=== PATIENT | male | born 1990 | race Caucasian/White ===

== ENCOUNTER 2022-05-03 19:21 | Inpatient (IN) | payer OTHER, SELFPAY ==
--- NOTE | ~2022-05-03 | XR_ITS ---
EXAMINATION: XR CHEST CLINICAL INFORMATION: Shortness of breath COMPARISON: None TECHNIQUE: The heart and pulmonary vessels appear normal. view of the chest was obtained. FINDINGS: Scattered areas of infiltrate are present, predominantly groundglass in appearance in the right perihilar region, right lower lobe medially and in the left lower lobe. A small left pleural effusion is present. No right pleural effusion. XR/XR chest 1V IMPRESSION: Multifocal areas of groundglass infiltrate. Small left pleural effusion. Findings suggestive of viral pneumonia.
[2022-05-03 19:25] VITALS: BP 136/66; PULSE 88; RESP 18; TEMP 36.6; O2SAT 90; BMI 30.9
[2022-05-03 20:10] LABS: MANUAL DIFF FLAG NO
--- OUTSIDE RECORDS SUMMARY | 2022-05-03 20:11 | XMS_ITS | Continuity of Care Document ---
:1990 Author Organization [facility] Adult Address [address] [place] [address]- Care Team Providers Name Role Phone Not on Staff, PCP Primary Care Physician Unavailable Encounter [facility] Date(s): 02/05/22 - 03/11/22 [facility] Adult [address] [place] [id number]- Attending Physician: Not on Staff, Attending MD Immunizations Given and Recorded Vaccine Date Status Refusal Reason SARS-CoV-2 (COVID-19) mRNA-1273 vaccine 01/09/21 Recorded SARS-CoV-2 (COVID-19) mRNA-1273 vaccine 11/20/20 Recorded tetanus/diphtheria/pertussis, acel(Tdap) 06/22/11 Recorde d Meningococcal Conjugate Vaccine 08/06/08 Recorded tetanus-diphtheria toxoids (Td) 06/14/01 Recorded Measles/Mumps/Rubella Virus Vaccine 11/15/95 Recorded Measles/Mumps/Rubella Virus Vaccine 07/24/91 Recorded Poliovirus Vaccine, Inactivated 06/22/94 Recorded Poliovirus Vaccine, Inactivated 03/19/92 Recorded Poliovirus Vaccine, Inactivated 90 Recorded Poliovirus Vaccine, Inactivated 90 Recorded Patient Care team information Care Team PersonnelName: Not on Staff, PCP Position: S Physician (General Medicine) Member Role: PCP
--- OUTSIDE RECORDS SUMMARY | 2022-05-03 20:11 | XMS_ITS | Continuity of Care Document ---
:1990 Author Organization [facility] Adult Address [address] [place] [address]- Care Team Providers Name Role Phone Not on Staff, PCP Primary Care Physician Unavailable Encounter [facility] Date(s): 02/09/22 - 03/11/22 [facility] Adult [address] [place] [id number]- Attending Physician: Krzysztof Do Admitting Physician: Krzysztof Do Referring Physician: AdmtrKrzysztof Immunizations Given and Recorded Vaccine Date Status [...]
[2022-05-03 20:12] LABS: Basophils Percent Auto 0.4 % (0-2); Eosinophils Absolute Auto 0.2 X10*3/uL (0.0-0.4); Eosinophils Percent Auto 2.8 % (0-4); Hematocrit 37.2 % (42.0-52.0); Imm Gran Abs Auto 0.03 X10*3/uL (0.00-0.03); Imm Gran Pct Auto 0.4 % (0.0-0.4); Lymphocytes Absolute Auto 1.5 X10*3/uL (1.2-4.9); Lymphocytes Percent Auto 21.4 % (20-40); Mean Corpuscular HGB Conc 34.9 g/dl (31.0-36.0); Mean Corpuscular Hemoglobin 30.7 pg (27.0-33.0); Mean Corpuscular Volume 87.9 fL (80.0-98.0); Mean Platelet Volume 9.3 fL (9.4-12.4); Monocytes Absolute Auto 0.5 X10*3/uL (0.1-1.2); Monocytes Percent Auto 7.1 % (2-11); Neutrophils Absolute Auto 4.8 x10*3/uL (2.0-8.3); Neutrophils Percent Auto 67.9 % (45-73); Platelet Count 258 X10*3/uL (160-400); Red Blood Count 4.23 X10*6/uL (4.60-5.80); Red Cell Distribution Width 11.6 % (11.0-16.0); White Blood Count 7.1 X10*3/uL (4.8-10.8)
[2022-05-03 20:12] LABS: Amphetamine Screen Urine Not Detected (Not Detect); Barbiturates, Urine Not Detected (Not Detect); Benzodiazepines Screen Urine Not Detected (Not Detect); Cannabinoid Screen Urine Not Detected (Not Detect); Cocaine Screen Urine Not Detected (Not Detect); Fentanyl, urine Not Detected (Not Detect); Opiate Screen Urine Not Detected (Not Detect); Phencyclidine Screen Urine Not Detected (Not Detect)
[2022-05-03 20:14] LABS: COVID-19 Test Negative (Negative); IDNOW Serial# 16C4AD1C
[2022-05-03 20:25] VITALS: O2SAT 98
--- NOTE | 2022-05-03 20:36 | ED.GENADULT ---
HPI - General Adult General Chief complaint: Psychiatric Symptoms Stated complaint: section 12 si Time Seen by Provider: 05/03/22 19:27 Source: patient and EMS Mode of arrival: EMS Limitations: no limitations History of Present Illness HPI narrative: 32-year-old male presenting via EMS for suicidal ideation w/ plan to OD on fentanyl or run infront of a car. Patient denies thoughts of harming others. Patient is a reliable historian states that his anxiety and depression has been increasing over the past year and he has recently started Lexapro. Patient is also taking methadone and has a history of opiate abuse last used 4 days ago. patient denies alcohol use but uses tobacco products in vapes daily. Patient has had 3 recent suicidal attempts. Patient denies auditory and visual hallucination. Patient was also diagnosed with pneumonia 3 days ago and was sent home with an antibiotic. Patient states he has had slight improvement in smptoms and is on oral antibiotics. Patient denies recent trauma, headache, fever, chills, chest pain, memory loss, hemoptysis, nausea, vomiting, diarrhea, chest pain, abd pain. Related Data Home Medications Medication Instructions Recorded Confirmed amoxicillin 875 mg-potassium 1 tab PO BID 05/03/22 05/03/22 clavulanate 125 mg tablet escitalopram oxalate 10 mg tablet 1 tab PO DAILY 05/03/22 05/03/22 methadone 10 mg tablet 30 mg PO DAILY 05/03/22 05/03/22 nicotine 21 mg/24 hr daily 1 patch topical DAILY 05/03/22 05/03/22 transdermal patch Allergies Allergy/AdvReac Type Severity Reaction Status Date / Time Seasonal Allergies Allergy Mild Runny Nose Verified 05/03/22 19:35 Review of Systems Review of Systems: Constitutional : No Weight loss, No Fever, No Chills, No Fatigue, No Malaise ENT/Mouth : No sore throat, No Rhinorrhea Eyes: No Eye Pain, No Swelling, No Redness Cardiovascular : No Chest Pain, + SOB, No Dyspnea on Exertion, No Orthopnea, No Edema, No Palpitations Respiratory : No Cough, No Sputum, No Wheezing Gastrointestinal : No Nausea, No Vomiting, No Diarrhea, No Constipation, No abdominal Pain, No Hematochezia, No Melena Genitourinary : No Dysuria, No Urinary Frequency, No Hematuria, Musculoskeletal : No joint pain, No Myalgias, No Joint Swelling Skin : No Skin Lesions, No rash Neuro : No Weakness, No Numbness, No Dizziness, No Headache Psych : + Anxiet, + Depression, NO HOMICIDAL IDEATION All other systems reviewed and are negative [facility] Social History Social History Advance Directives: No Advance Directives Information Provided: Yes Physical Exam ED Vital Signs: Vital Signs - 24 hr 05/03/22 19:25 05/03/22 20:25 05/03/22 20:57 Temperature 97.9 F Pulse Rate 88 Respiratory Rate 18 Blood Pressure 136/66 Pulse Oximetry 90 L 98 93 Oxygen Delivery Method Room Air Room Air Room Air BMI result Body Mass Index 30.9 Const Other: Appearance: Alert.? Oriented X3.? Moderate distress.? Head: Normocephalic, atraumatic, no step-offs or deformities Eyes: Pupils equal, round and reactive to light.? ENT: Pharynx normal.? Neck: Normal inspection.? Neck supple.? CVS: Normal heart rate and rhythm.? Pulses normal.? Respiratory: No respiratory distress.? Breath sounds normal.? Abdomen: Soft and nontender.? Skin: Skin warm and dry.? Normal skin color.? Normal skin turgor.? Extremities: No lower extremity edema.? No calf ttp. 5/5 strength to bilateral upper and lower extremities Back: No midline tenderness, no C-spine tenderness, full range of motion, no CVA tenderness bilaterally Neuro: Oriented X 3.? No motor deficit.? No sensory deficit. CN 2-12 intact Course Reevaluation(s) Reevaluation #1: CBC appears to be within normal limits. Chemistry with no acute findings requiring intervention. Urine toxicology negative. Salicylates, acetaminophen and ethanol negative. Patient COVID negative. Chest x-ray with multifocal areas of ground-glass infiltrate, small left pleural effusion. Concerning for possible viral pneumonia. Patient is currently on antibiotics for this will continue him on his antibiotic course. Will give 1 time dose of Decadron and albuterol inhaler for viral pneumonia. Patient appears comfortable no acute distress no further intervention needed for pneumonia. I do not suspect patient needs medical admit. I do not suspect PE on this patient he is PERC negative Time: 22:37 Reevaluation #2: At this time patient will be placed into observation to allow more time to be evaluated by the care team. At time observation was started patient common cooperative no acute distress will continue to monitor. Time: 22:39 Medications Administered Generic Name Dose Route Start Last Admin Trade Name Edinson PRN Reason Stop Dose Admin Amoxicillin/Clavulanate Potassium 875 mg 05/03/22 21:45 05/03/22 21:44 Amoxicillin/Potassium Clav 875 Mg Tablet PO 875 mg BID [place] Administration Nicotine 21 mg 05/04/22 09:00 05/03/22 21:45 Nicotine 21 Mg Patch.Td24 TRANSDERMA 21 mg DAILY [place] Administration Medical Decision Making Medical Decision Making [facility] Narrative: 32-year-old male presenting for suicidal ideations and plan. Patient also has pneumonia is currently being treated with antibiotics. No respiratory complaints. Respiratory exam benign. Initially patient vital signs revealed an O2 saturation of 90% on room air however when repeated patient's 98%, no respiratory complaints, appears comfortable no increased work of breathing, no signs of acute respiratory distress. Most likely anxiety/depression versus polysubstance abuse. Less likely electrolyte abnormalities or metabolic disturbances Plan medical clearance evaluation by care team Differential Diagnosis Differential Diagnoses: The differential diagnosis associated with the presentation includes Most likely anxiety/depression versus polysubstance abuse. Less likely electrolyte abnormalities or metabolic disturbances Admission/Observation Consideration of admission/observation: Escalation of care including admission/observation considered Likely psychiatric admission Lab Data [facility] Lab Attestation statement: I reviewed the patient's lab results. 05/03/22 20:00 05/03/22 20:00 Labs: Lab Results 05/03/22 05/03/22 05/03/22 Range/Units 19:44 19:44 20:00 WBC (4.8-10.8) X10*3/uL RBC (4.60-5.80) X10*6/uL Hgb (14.0-18.0) g/dl Hct (42.0-52.0) % MCV (80.0-98.0) fL MCH (27.0-33.0) pg MCHC (31.0-36.0) g/dl RDW (11.0-16.0) % Plt Count (160-400) X10*3/uL MPV (9.4-12.4) fL Immature Gran % (Auto) (0.0-0.4) % Neut % (Auto) (45-73) % Lymph % (Auto) (20-40) % [place] % (Auto) (2-11) % Eos % (Auto) (0-4) % Baso % (Auto) (0-2) % Lymph # (Auto) (1.2-4.9) X10*3/uL [place] # (Auto) (0.1-1.2) X10*3/uL Eos # (Auto) (0.0-0.4) X10*3/uL Baso # (Auto) (0.0-0.2) X10*3/uL Abs Immat Gran (auto) (0.00-0.03) X10*3/uL Absolute Neuts (auto) (2.0-8.3) x10*3/uL Absolute Nucleated RBC (0.0-0.012) X10*3/uL Nucleated RBC % (auto) (0.0-0.2) /100WBC Sodium (135-145) mmol/L Potassium (3.3-5.1) mmol/L Chloride (96-108) mmol/L Carbon Dioxide (22-29) mmol/L Anion Gap (12-20) BUN (9-16) mg/dL Creatinine (0.5-1.4) mg/dL Estim Creat Clear Calc Estimated GFR Random Glucose (60-115) mg/dL Calcium (8.4-10.2) mg/dL Total Bilirubin (0.0-1.0) mg/dL AST (5-37) U/L ALT (0-40) U/L Alkaline Phosphatase (39-117) U/L Total Protein (6.5-8.0) g/dL Albumin (3.5-5.0) g/dL Salicylates < 5.0 L (15-30) mg/dL Urine Opiates Screen Not Detected (Not Detect) Urine Fentanyl Screen Not Detected (Not Detect) Acetaminophen < 17 (<30) mcg/mL Ur Barbiturates Screen Not Detected (Not Detect) Ur Phencyclidine Scrn Not Detected (Not Detect) Ur Amphetamines Screen Not Detected (Not Detect) U Benzodiazepines Scrn Not Detected (Not Detect) Urine Cocaine Screen Not Detected (Not Detect) U Marijuana (THC) Screen Not Detected (Not Detect) Ethyl Alcohol mg/dL COVID-19 (YINKA) Negative (Negative) COVID-19 Clin Com See Note 05/03/22 05/03/22 Range/Units 20:00 20:00 WBC 7.1 (4.8-10.8) X10*3/uL RBC 4.23 L (4.60-5.80) X10*6/uL Hgb 13.0 L (14.0-18.0) g/dl Hct 37.2 L (42.0-52.0) % MCV 87.9 (80.0-98.0) fL MCH 30.7 (27.0-33.0) pg MCHC 34.9 (31.0-36.0) g/dl RDW 11.6 (11.0-16.0) % Plt Count 258 (160-400) X10*3/uL MPV 9.3 L (9.4-12.4) fL Immature Gran % (Auto) 0.4 (0.0-0.4) % Neut % (Auto) 67.9 (45-73) % Lymph % (Auto) 21.4 (20-40) % [place] % (Auto) 7.1 (2-11) % Eos % (Auto) 2.8 (0-4) % Baso % (Auto) 0.4 (0-2) % Lymph # (Auto) 1.5 (1.2-4.9) X10*3/uL [place] # (Auto) 0.5 (0.1-1.2) X10*3/uL Eos # (Auto) 0.2 (0.0-0.4) X10*3/uL Baso # (Auto) 0.0 (0.0-0.2) X10*3/uL Abs Immat Gran (auto) 0.03 (0.00-0.03) X10*3/uL Absolute Neuts (auto) 4.8 (2.0-8.3) x10*3/uL Absolute Nucleated RBC 0.000 (0.0-0.012) X10*3/uL Nucleated RBC % (auto) 0.0 (0.0-0.2) /100WBC Sodium 135 (135-145) mmol/L Potassium 4.4 (3.3-5.1) mmol/L Chloride 96 (96-108) mmol/L Carbon Dioxide 29 (22-29) mmol/L Anion Gap 14 (12-20) BUN 9 (9-16) mg/dL Creatinine 0.91 (0.5-1.4) mg/dL Estim Creat Clear Calc 149.3 Estimated GFR > 60 Random Glucose 95 (60-115) mg/dL Calcium 9.0 (8.4-10.2) mg/dL Total Bilirubin 1.1 H (0.0-1.0) mg/dL AST 36 (5-37) U/L ALT 51 H (0-40) U/L Alkaline Phosphatase 73 (39-117) U/L Total Protein 6.1 L (6.5-8.0) g/dL Albumin 3.7 (3.5-5.0) g/dL Salicylates (15-30) mg/dL Urine Opiates Screen (Not Detect) Urine Fentanyl Screen (Not Detect) Acetaminophen (<30) mcg/mL Ur Barbiturates Screen (Not Detect) Ur Phencyclidine Scrn (Not Detect) Ur Amphetamines Screen (Not Detect) U Benzodiazepines Scrn (Not Detect) Urine Cocaine Screen (Not Detect) U Marijuana (THC) Screen (Not Detect) Ethyl Alcohol < 10 mg/dL COVID-19 (YINKA) (Negative) COVID-19 Clin Com Independent Interpretation I performed an independent interpretation of an: Plain X-Ray (Question viral pneumonia) Radiology Impression Discussion of test interpretation with radiology: I have reviewed the radiologist's reading. Core Measures AMI core measures followed: Yes Measure exclusions: not indicated Critical Care Time Critical Care Time Critical Care Time: No Discharge Plan Discharge Clinical Impression: Suicidal ideation, Viral pneumonia Patient Disposition: Still a Patient Prescriptions: No Action nicotine 21 mg/24 hr patch 24 hour 1 patch topical DAILY amoxicillin-pot clavulanate 875-125 mg tablet 1 tab PO BID escitalopram oxalate 10 mg tablet 1 tab PO DAILY methadone 10 mg Tablet 30 mg PO DAILY Interventions: Holden-Suicide Risk Severity Scale Last Done: 05/03/22 19:56
[2022-05-03 20:39] LABS: Acetaminophen LAB < 17 mcg/mL (<30); Alanine Aminotransferase 51 U/L (0-40); Albumin Level 3.7 g/dL (3.5-5.0); Alkaline Phosphatase 73 U/L (39-117); Anion Gap 14 (12-20); Aspartate Amino Transferase 36 U/L (5-37); Bilirubin Total 1.1 mg/dL (0.0-1.0); Blood Urea Nitrogen 9 mg/dL (9-16); Carbon Dioxide 29 mmol/L (22-29); Chloride 96 mmol/L (96-108); Creatinine Clr Calc Pharmacy 149.3; Estimated Glomerular Filt Rate > 60; Ethanol < 10 mg/dL; Glucose Random 95 mg/dL (60-115); Potassium 4.4 mmol/L (3.3-5.1); Salicylate < 5.0 mg/dL (15-30); Sodium 135 mmol/L (135-145); Total Protein 6.1 g/dL (6.5-8.0)
[2022-05-03 20:57] VITALS: O2SAT 93
[2022-05-03] MEDS: Amoxicillin/Potassium Clav 875 MG TABLET PO (21:44)
[2022-05-03] MEDS: Nicotine 21 MG PATCH.TD24 TRANSDERMA (21:45)
--- NOTE | 2022-05-03 22:35 | HE.PHANOTE ---
RE: methadone Received last dose verification from [facility]; 30mg 05/03/22 @ 0900
[2022-05-03] MEDS: dexAMETHasone sod phosphate 4 MG/ML VIAL 6 MG IVPUSH (22:48)
[2022-05-03] MEDS: Albuterol Sulfate 90 MCG 8 GM INHALER 4 PUFF INHALE (22:49)
--- NOTE | 2022-05-04 05:06 | PC.ADMIT ---
Pt admitted to m3 at [address] [facility] pod on CV for SI w/plan to cut wrists and recent suicide attempt by overdose 04/29/22. Pt reports he intentionally overdosed on fentanyl about 1 week ago, was seen at [facility] ED but did not disclose SI or intent to complete suicide at that time. Pt has chronic longstanding history of substance use since age 16, including percocet, herion/fentanyl, etoh, and crack/cocaine. He reports having severe depression for the last 9 years and self-medicating with drugs/etoh. He recently moved to sober living in [place] from his home in [facility] in an attempt to get sober; he has not used etoh or crack/cocaine in the 3 months of living there but has been using 1g fentanyl daily. He reports feeling hopeless, helpless, overwhelmed with anxiety, and inability to cope with depression. Reports current passive SI, no plan/intent while inpt; denies HI/AVH. He is currently homeless and unsure if he can return to the sober house due to substance use. He is currently on abx for pneumonia, no other medical concerns.
[2022-05-04 06:00] VITALS: BP 129/60; PULSE 75; RESP 20; TEMP 36.5; O2SAT 95
--- NOTE | 2022-05-04 09:36 | PHA.MEDREC ---
Pharmacy Consult ? Medication Reconciliation Pharmacy has completed the medication reconciliation. Pharmacy has reviewed med rec done by Marvin
[2022-05-04] MEDS: Escitalopram Oxalate 10 MG TABLET PO (09:47)
[2022-05-04] MEDS: Nicotine 21 MG PATCH.TD24 TRANSDERMA (09:47)
[2022-05-04] MEDS: Amoxicillin/Potassium Clav 875 MG TABLET PO ×2 (09:47→20:36)
[2022-05-04] MEDS: methADONE HCl 20 MG/2 ML ORAL.CONC 30 MG PO (09:48)
--- NOTE | 2022-05-04 13:47 | P.HPPS_ITS ---
HPI Date of Service: 05/04/22 Chief Complaint: od HPI Subjective Notes: Kincaid Warning and Conditional Voluntary Healthcare Proxy: No Guardianship: No Narrative: THE PATIENT IS A 32-YEAR-OLD MALE CURRENTLY LIVING IN A SOBER HOUSE REFERRED FROM THE [facility] EMERGENCY ROOM STATUS POST OVERDOSE. THE PATIE NT WAS EVALUATED BY THE IN CRISIS TEAM HE DID TRY TO OVERDOSE ON FENTANYL HE WAS TREATED IN THE EMERGENCY ROOM WAS REPORTEDLY TREATED FOR PNEUMONIA. THE PATIENT STATES HE HAS BEEN DIAGNOSED WITH DEPRESSION THE PAST BUT HAS ALWAYS RESISTED TREATMENT FOR IT THINKING HE SHOULD JUST ?A ?ISAAC UP. HIS MAIN COPING STRATEGY FOR HIS MOOD HAS GENERALLY BEEN USE OF SUBSTANCES INCLUDING FENTANYL AND COCAINE INTRAVENOUSLY. HE DOES HAVE SUPPORTIVE HIS FAMILY. AND PATIENT IS QUITE CLOSE WITH HIS SISTER. HE HAS BEEN STARTED ON S CITALOPRAM 10 MG DAILY. HE DOES HAVE HISTORY OF CHRONIC DEPRESSION PAST OVERDOSE ATTEMPTS Past Psychiatric History: NO REPORTED PSYCHIATRIC HOSPITALIZATIONS HISTORY OF 3- 4 SUICIDE ATTEMPTS AND HE HAS BEEN REVIVED FROM OPIATE USE WITH NARCAN ON NUMBER OF OCCASIONS INCLUDING ON 04/29/2022 Medical Evaluation Reviewed: Yes VIRAL PNEUMONIA NOTED BY ER CHEST X-RAY FINDINGS PATIENT ALSO INITIALLY NOTED SOME BLOOD IN HIS URINE PMFSH Medical History (Updated 05/05/22 @ 08:28 by Vicente Bedoya MD) Major depressive disorder, recurrent severe without psychotic features Opioid use disorder, severe, dependence Narrative: LONG HISTORY OF INTRAVENOUS OPIATE USE INTERMITTENT COCAINE USE RECENT REPORTED VIRAL PNEUMONIA Family History: POSITIVE FAMILY HISTORY OF DEPRESSION AND ALCOHOL USE POSITIVE HISTORY OF SUICIDE Social History: Patient is unemployed currently living in a sober house 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 He does feel supported by his family particularly his sister Substance History: Long history of opiate dependence intermittent cocaine use history periods of sobriety up to year and a half has not had medically assisted treatment he has lived living in a sober facility Diagnostics Vital Signs (24Hr): Vital Signs - 24 hr 05/03/22 19:25 05/03/22 20:25 05/03/22 20:57 Temperature 97.9 F Pulse Rate 88 Respiratory Rate 18 Blood Pressure 136/66 Pulse Oximetry 90 L 98 93 Oxygen Delivery Method Room Air Room Air Room Air 05/04/22 06:00 Temperature 97.7 F Pulse Rate 75 Respiratory Rate 20 Blood Pressure 129/60 Pulse Oximetry 95 Oxygen Delivery Method Room Air BMI result Body Mass Index 30.9 Labs 05/03/22 20:00 05/03/22 20:00 Labs: Laboratory Results - last 48 hr 05/03/22 05/03/22 05/03/22 19:44 19:44 20:00 WBC RBC Hgb Hct MCV MCH MCHC RDW Plt Count MPV Immature Gran % (Auto) Neut % (Auto) Lymph % (Auto) [place] % (Auto) Eos % (Auto) Baso % (Auto) Lymph # (Auto) [place] # (Auto) Eos # (Auto) Baso # (Auto) Abs Immat Gran (auto) Absolute Neuts (auto) Absolute Nucleated RBC Nucleated RBC % (auto) Sodium Potassium Chloride Carbon Dioxide Anion Gap BUN Creatinine Estim Creat Clear Calc Estimated GFR Random Glucose Calcium Total Bilirubin AST ALT Alkaline Phosphatase Total Protein Albumin Salicylates < 5.0 L Urine Opiates Screen Not Detected Urine Fentanyl Screen Not Detected Acetaminophen < 17 Ur Barbiturates Screen Not Detected Ur Phencyclidine Scrn Not Detected Ur Amphetamines Screen Not Detected U Benzodiazepines Scrn Not Detected Urine Cocaine Screen Not Detected U Marijuana (THC) Screen Not Detected Ethyl Alcohol COVID-19 (YINKA) Negative COVID-19 Clin Com See Note 05/03/22 05/03/22 20:00 20:00 WBC 7.1 RBC 4.23 L Hgb 13.0 L Hct 37.2 L MCV 87.9 MCH 30.7 MCHC 34.9 RDW 11.6 Plt Count 258 MPV 9.3 L Immature Gran % (Auto) 0.4 Neut % (Auto) 67.9 Lymph % (Auto) 21.4 [place] % (Auto) 7.1 Eos % (Auto) 2.8 Baso % (Auto) 0.4 Lymph # (Auto) 1.5 [place] # (Auto) 0.5 Eos # (Auto) 0.2 Baso # (Auto) 0.0 Abs Immat Gran (auto) 0.03 Absolute Neuts (auto) 4.8 Absolute Nucleated RBC 0.000 Nucleated RBC % (auto) 0.0 Sodium 135 Potassium 4.4 Chloride 96 Carbon Dioxide 29 Anion Gap 14 BUN 9 Creatinine 0.91 Estim Creat Clear Calc 149.3 Estimated GFR > 60 Random Glucose 95 Calcium 9.0 Total Bilirubin 1.1 H AST 36 ALT 51 H Alkaline Phosphatase 73 Total Protein 6.1 L Albumin 3.7 Salicylates Urine Opiates Screen Urine Fentanyl Screen Acetaminophen Ur Barbiturates Screen Ur Phencyclidine Scrn Ur Amphetamines Screen U Benzodiazepines Scrn Urine Cocaine Screen U Marijuana (THC) Screen Ethyl Alcohol < 10 COVID-19 (YINKA) COVID-19 Clin Com Imaging Radiology Impressions: ITS Impressions Chest X-Ray 05/03/22 20:22 IMPRESSION: Multifocal areas of groundglass infiltrate. Small left pleural effusion. Findings suggestive of viral pneumonia. Meds/Allergies Meds Home Medications Medication Instructions Recorded Confirmed Type amoxicillin 875 mg-potassium 1 tab PO BID 05/03/22 05/03/22 History clavulanate 125 mg tablet escitalopram oxalate 10 mg tablet 1 tab PO DAILY 05/03/22 05/03/22 History methadone 10 mg tablet 30 mg PO DAILY 05/03/22 05/03/22 History nicotine 21 mg/24 hr daily 1 patch topical DAILY 05/03/22 05/03/22 History transdermal patch Allergies Allergies Allergy/AdvReac Type Severity Reaction Status Date / Time Seasonal Allergies Allergy Mild Runny Nose Verified 05/03/22 19:35 Mental Status Exam Mental Status Exam Patient Appearance: Disheveled Patient Orientation: Person, Place, Time and Situation Level of Consciousness: Awake and Appropriate Patient Behavior: Cooperative Behavior Comments: Sad looking Mood Description: Withdrawn, Depressed, Blunted and Apprehensive Affect Description: Appropriate, Constricted and Depressed Patient Cognition Impaired: No Ability to Follow Directions: Good Speech Pattern: Clear Memory Description: Intact Hallucinations: None Delusions: Not Present Thought Process: Intact and Goal Oriented Thought Content: positive for Goal Oriented, positive for Preoccupation, negative for Suicidal Ideation or negative for Homicidal Ideation Depressive Symptoms: Increased Anxiety, Increased Irritability, Hopelessness, Feelings of Guilt, Increased Fatigue, Thoughts of /Suicide, Low Self Esteem, Loss of Energy and Difficulty Concentrating Judgement: Good Judgement and Insight: Patient denies current active thoughts of self-harm he is active and open to treatment both for his substance use and depression reports chronic hopelessness helplessness despondency difficulty seeing future Assessment & Plan Assessment & Plan (1) Major depressive disorder, recurrent severe without psychotic features: Status: Acute Code(s): F33.2 - Major depressive disorder, recurrent severe without psychotic features (2) Opioid use disorder, severe, dependence: Status: Acute Code(s): F11.20 - Opioid dependence, uncomplicated (3) Viral pneumonia: Status: Acute Code(s): J12.9 - Viral pneumonia, unspecified Plan Patient chronically depressed has not received prior treatment hopeless helpless despondent self-critical with critical thoughts of why he can not remain sober has limited education regarding both depression opiate dependence open to seeing someone from the addiction team currently on methadone t.i.d. Lexapro amoxicillin for pneumonia Would benefit from psychoeducation aggressive treatment of depression discussed different options for medically assisted treatment would probably also benefit from SSD if he qualifies Monitor pulmonary symptoms Patient educated on: diagnosis, medication risk/benefits, substance abuse, therapeutic strategies and medical condition Informed Consent: understands Reason for continued inpatient stay Substantial Risk for: harm to self, inability to function and rapid decompensation Statement Statement: I have reviewed the history and physical and performed a pertinent examination on my patient. No changes have occurred unless specified. If the History and Physical was not performed prior to admission, the Hospitalist's service will be consulted for completing the admission physical. Time Spent With Patient Time: Total time managing care of this patient today ____ minutes.
[2022-05-04 18:00] VITALS: BP 135/76; PULSE 71; RESP 20; TEMP 36.4; O2SAT 95
[2022-05-04] MEDS: Nicotine Polacrilex 2 MG GUM 4 MG BUCCAL (19:19)
[2022-05-04] MEDS: Magnesium Hydrox/Alum Hydrox 30 ML ORAL.SUSP PO (22:17)
[2022-05-05 08:30] VITALS: BP 132/57; PULSE 71; RESP 18; TEMP 36.1; O2SAT 95
[2022-05-05] MEDS: Amoxicillin/Potassium Clav 875 MG TABLET PO ×2 (08:31→22:02)
[2022-05-05] MEDS: Nicotine 21 MG PATCH.TD24 TRANSDERMA (08:32)
[2022-05-05] MEDS: Escitalopram Oxalate 10 MG TABLET PO (08:32)
[2022-05-05] MEDS: methADONE HCl 20 MG/2 ML ORAL.CONC 30 MG PO (08:34)
[2022-05-05 09:25] LABS: Estimated Average Glucose 97 mg/dL
[2022-05-05 10:06] LABS: Alanine Aminotransferase 37 U/L (0-40); Alkaline Phosphatase 58 U/L (39-117); Anion Gap 14 (12-20); Aspartate Amino Transferase 20 U/L (5-37); Bilirubin Total 0.5 mg/dL (0.0-1.0); Blood Urea Nitrogen 17 mg/dL (9-16); Calcium 9.2 mg/dL (8.4-10.2); Carbon Dioxide 29 mmol/L (22-29); Chloride 101 mmol/L (96-108); Cholesterol 174 mg/dL; Creatinine Clr Calc Pharmacy 157.9; Estimated Glomerular Filt Rate > 60; Glucose Fasting 95 mg/dL (60-99); HDL Cholesterol 21 mg/dL; LDL Cholesterol Calculated 120 mg/dl; Potassium 4.4 mmol/L (3.3-5.1); Sodium 140 mmol/L (135-145); Total Protein 6.5 g/dL (6.5-8.0); Triglycerides 168 mg/dL
[2022-05-05 10:36] LABS: Folate 9.7 ng/mL (> or = 4.0); Thyroid Stimulating Hormone 0.52 uIU/mL (0.32-4.0); Vitamin B12 515 pg/mL (200-900)
[2022-05-05] MEDS: Milk of Magnesia 30 ML ORAL.SUSP PO (10:50)
--- NOTE | 2022-05-05 15:20 | HO.ADDICTCON ---
History of Present Illness Date of Service: 05/05/2022 Chief Complaint: od Reason for Consult: OUD Sources of Information: patient interviewed and chart reviewed HPI Narrative: Patient is a 32 year old male currently admitted to unit with worsening depression and recent recurrence of opiate use. Patient seen by this brief writer and systems engineer on M3. Patient awake, alert, and engaged in interview. Currently receiving methadone 30mg QD which he reports was started while in [facility] ED approx 5 days ago. Patient reports he had been in recovery and living at sober house in [facility], but has used twice since living there--most recent was his overdose on 04/29 which is what brought him [facility] ED. Substance use history reviewed from SW note, with focus more on recent use and triggers. He reports that he has had several periods of sustained recovery that end with him using due to worsening depression and anxiety. Patient identifies these two symptoms as chronic and has tried several other methods to address them or avoid them. He denies any history of MOUD aside from methadone taper while in [facility] level of care. He expressed hesitation about continuing methadone, stating, I think I like it too much, I can already see myself asking to go higher and higher on the dose . He reports he was not in withdrawal when is was offered in the ED. He is also concerned about continuation of methadone once discharged, because he is unsure if the place he is hoping to go to (residential in [facility]) accepts MAT. He stated that he would be open to Buprenorphine as an option because he feels like it may be less restricting and dosage can be low. Overall patient appeared to be anxious, indecisive and slightly overwhelmed. Discussed options that could be addressed while here, encouraged patient to focus on more immediate decisions. Patient requesting decrease in methadone dose, agreeable to 20mg tomorrow. Of note, patient expressed feeling a little sedated, like I just want to close my eyes anytime I sit down . Past Psychiatric History: NO REPORTED PSYCHIATRIC HOSPITALIZATIONS HISTORY OF 3-4 SUICIDE ATTEMPTS AND HE HAS BEEN REVIVED FROM OPIATE USE WITH NARCAN ON NUMBER OF OCCASIONS INCLUDING ON 04/29/2022 Review of Systems Constitutional: Reports as per HPI and Reports difficulty sleeping Diagnostics Vital Signs (24Hr): Vital Signs - 24 hr 05/04/22 18:00 05/05/22 08:30 Temperature 97.6 F 97.0 F Pulse Rate 71 71 Respiratory Rate 20 18 Blood Pressure 135/76 132/57 L Pulse Oximetry 95 95 Oxygen Delivery Method Room Air Room Air BMI result Body Mass Index 30.9 Labs 05/03/22 20:00 05/05/22 08:38 Labs: Laboratory Results - last 48 hr 05/03/22 05/03/22 05/03/22 19:44 19:44 20:00 WBC RBC Hgb Hct MCV MCH MCHC RDW Plt Count MPV Immature Gran % (Auto) Neut % (Auto) Lymph % (Auto) Monroe % (Auto) Eos % (Auto) Baso % (Auto) Lymph # (Auto) Monroe # (Auto) Eos # (Auto) Baso # (Auto) Abs Immat Gran (auto) Absolute Neuts (auto) Absolute Nucleated RBC Nucleated RBC % (auto) Sodium Potassium Chloride Carbon Dioxide Anion Gap BUN Creatinine Estim Creat Clear Calc Estimated GFR Random Glucose Fasting Glucose Estimat Average Glucose Hemoglobin A1c % Calcium Total Bilirubin AST ALT Alkaline Phosphatase Total Protein Albumin Triglycerides Cholesterol LDL Cholesterol, Calc HDL Cholesterol Vitamin B12 Folate TSH Salicylates < 5.0 L Urine Opiates Screen Not Detected Urine Fentanyl Screen Not Detected Acetaminophen < 17 Ur Barbiturates Screen Not Detected Ur Phencyclidine Scrn Not Detected Ur Amphetamines Screen Not Detected U Benzodiazepines Scrn Not Detected Urine Cocaine Screen Not Detected U Marijuana (THC) Screen Not Detected Ethyl Alcohol COVID-19 ([facility]INK[facility]) Negative COVID-19 Clin Com See Note 05/03/22 05/03/22 05/05/22 20:00 20:00 08:38 WBC 7.1 RBC 4.23 L Hgb 13.0 L Hct 37.2 L MCV 87.9 MCH 30.7 MCHC 34.9 RDW 11.6 Plt Count 258 MPV 9.3 L Immature Gran % (Auto) 0.4 Neut % (Auto) 67.9 Lymph % (Auto) 21.4 Monroe % (Auto) 7.1 Eos % (Auto) 2.8 Baso % (Auto) 0.4 Lymph # (Auto) 1.5 Monroe # (Auto) 0.5 Eos # (Auto) 0.2 Baso # (Auto) 0.0 Abs Immat Gran (auto) 0.03 Absolute Neuts (auto) 4.8 Absolute Nucleated RBC 0.000 Nucleated RBC % (auto) 0.0 Sodium 135 140 Potassium 4.4 4.4 Chloride 96 101 Carbon Dioxide 29 29 Anion Gap 14 14 BUN 9 17 H Creatinine 0.91 0.86 Estim Creat Clear Calc 149.3 157.9 Estimated GFR > 60 > 60 Random Glucose 95 Fasting Glucose 95 Estimat Average Glucose Hemoglobin A1c % Calcium 9.0 9.2 Total Bilirubin 1.1 H 0.5 AST 36 20 ALT 51 H 37 Alkaline Phosphatase 73 58 Total Protein 6.1 L 6.5 Albumin 3.7 4.0 Triglycerides 168 Cholesterol 174 LDL Cholesterol, Calc 120 HDL Cholesterol 21 Vitamin B12 515 Folate 9.7 TSH 0.52 Salicylates Urine Opiates Screen Urine Fentanyl Screen Acetaminophen Ur Barbiturates Screen Ur Phencyclidine Scrn Ur Amphetamines Screen U Benzodiazepines Scrn Urine Cocaine Screen U Marijuana (THC) Screen Ethyl Alcohol < 10 COVID-19 ([facility]) COVID-19 [facility] 05/05/22 08:38 WBC RBC Hgb Hct MCV MCH MCHC RDW Plt Count MPV Immature Gran % (Auto) Neut % (Auto) Lymph % (Auto) Monroe % (Auto) Eos % (Auto) Baso % (Auto) Lymph # (Auto) Monroe # (Auto) Eos # (Auto) Baso # (Auto) Abs Immat Gran (auto) Absolute Neuts (auto) Absolute Nucleated RBC Nucleated RBC % (auto) Sodium Potassium Chloride Carbon Dioxide Anion Gap BUN Creatinine Estim Creat Clear Calc Estimated GFR Random Glucose Fasting Glucose Estimat Average Glucose 97 Hemoglobin A1c % 5.0 Calcium Total Bilirubin AST ALT Alkaline Phosphatase Total Protein Albumin Triglycerides Cholesterol LDL Cholesterol, Calc HDL Cholesterol Vitamin B12 Folate TSH Salicylates Urine Opiates Screen Urine Fentanyl Screen Acetaminophen Ur Barbiturates Screen Ur Phencyclidine Scrn Ur Amphetamines Screen U Benzodiazepines Scrn Urine Cocaine Screen U Marijuana (THC) Screen Ethyl Alcohol COVID-19 ([facility]) COVID-19 [facility] Imaging Radiology Impressions: ITS Impressions Chest X-Ray 05/03/22 20:22 IMPRESSION: Multifocal areas of groundglass infiltrate. Small left pleural effusion. Findings suggestive of viral pneumonia. Mental Status Exam Mental Status Exam Patient Appearance: Appropriate Patient Orientation: Person, Place, Time and Situation Level of Consciousness: Awake and Appropriate Patient Behavior: Talkative and Cooperative Mood Description: Anxious Affect Description: Appropriate and Anxious Speech Pattern: Clear Thought Process: [place] Judgement: Fair Medications Medications Current Medications Acetaminophen (Acetaminophen 325 Mg Tablet) 650 mg PO Q6H PRN PRN Reason: Headache/Pain Mild Scale (1-3) Al Hydroxide/Mg Hydroxide (Magnesium Hydrox/Alum Hydrox 30 Ml Oral.Susp) 30 ml PO Q6H PRN PRN Reason: Heartburn/Nausea Last Admin: 05/04/22 22:17 Dose: 30 ml Amoxicillin/Clavulanate Potassium (Amoxicillin/Potassium Clav 875 Mg Tablet) 875 mg PO BID [facility] Last Admin: 05/05/22 08:31 Dose: 875 mg Escitalopram Oxalate (Escitalopram Oxalate 10 Mg Tablet) 10 mg PO DAILY [facility] Last Admin: 05/05/22 08:32 Dose: 10 mg Hydroxyzine HCl (Hydroxyzine Hcl 25 Mg Tablet) 25 mg PO Q6H PRN PRN Reason: Anxiety Magnesium Hydroxide (Milk Of Magnesia 30 Ml Oral.Susp) 30 ml PO DAILY PRN PRN Reason: Constipation Last Admin: 05/05/22 10:50 Dose: 30 ml Methadone HCl (Methadone Hcl 20 Mg/2 Ml Oral.Conc) 20 mg PO DAILY [facility] Nicotine (Nicotine 21 Mg Patch.Td24) 21 mg TRANSDERMA DAILY [facility] Last Admin: 05/05/22 08:32 Dose: 21 mg Nicotine Polacrilex (Nicotine Polacrilex 2 Mg Gum) 4 mg BUCCAL Q2H PRN PRN Reason: nicotine cravings Last Admin: 05/04/22 19:19 Dose: 4 mg Trazodone HCl (Trazodone Hcl 100 Mg Tablet) 100 mg PO BEDTIME PRN PRN Reason: Insomnia Allergies Allergies Allergy/AdvReac Type Severity Reaction Status Date / Time Seasonal Allergies Allergy Mild Runny Nose Verified 05/03/22 19:35 Assessment & Plan Assessment & Plan (1) Opioid use disorder, severe, dependence: Status: Acute Code(s): F11.20 - Opioid dependence, uncomplicated Assessment and Plan: decrease dose to 20mg QD will check in daily regarding dose and if he wishes to continue decreasing Total time managing care of this patient today _45___ minutes. PMFSH Past Medical History Medical History (Updated 05/05/22 @ 08:28 by Vicente Bedoya MD) Major depressive disorder, recurrent severe without psychotic features Opioid use disorder, severe, dependence Social History Social History Household Members: None Housing: Other Housing Other:: sober living Do you presently have visiting nurse or other home services: No Patient Tobacco Use Status: Never used Tobacco Tobacco use type: Smokeless Tobacco Smoked in Last 30 Days: Yes e-Cigarette/Vaping Use: Currently Using Frequency of e-Cigarette/Vaping Use: daily Patient Interested in Nicotine Replacement: Yes Patient Given Instructions on How to Stop Smoking: Yes Date Education Initiated: 05/04/22 Second Hand Smoke Exposure: No Use of substances other than those prescribed or required for medical reasons: Yes Substance Use Type: Crack/Cocaine, Heroin, IV Drugs and Opiates Substance Use Frequency: Chronic Longstanding Last Used Substance: Days (ago) Last Used Substance Other:: 04/29/22 Currently Displaying Signs/Symptoms of Drug Intoxication Withdrawal: No Any prior treatment program specific to substance use: Yes Have you been hit, kicked, punched, or otherwise hurt by someone within the past year? If so, by whom?: No Do you feel safe in your current relationship?: No Current Relationship Is there a partner from a previous relationship who is making you feel unsafe now?: No Are you made to feel afraid or neglected: No Advance Directives: No Advance Directives Information Provided: Yes Do you have thoughts of harming others: None Do you have a plan to hurt others: No Plan Recently lost weight without trying: No How much weight loss: Not applicable Eating poorly because of decreased appetite: No Nutrition screen score: 0 Nutrition Risks: No Nutritional Risk Poor oral hygiene: No service: No Sexual orientation: Straight/Heterosexual
--- NOTE | 2022-05-05 17:09 | P.PNPSI_ITS ---
Subjective Subjective Date of Service: 05/05/22 Reason For Visit: od Interim History: calm, cooperative. seen solo and also for a time with AYAN liang. reports target Sx of DFA, anergia, anhedonia/amotivation. started lexapro yesterday. educated re wellbutrin as well. decides to stick with current regimen for now, aside from increasing HS trazodone to 100 mg for insomnia. per staff, pleasant, moderate anxiety/dep. denies SI/HI/AVH. attending groups. recent poor sleep. up until 0230 reading. on antibx for PNA. Mental Status Exam Mental Status Exam Narrative: adequately dressed and groomed. cooperative, no PMA/PMR. speech nml rate, amount, loudness, tone, latency. thoughts linear and logica. no paranoia or delusions. affect constricted, normo-intense, non-labile. no SI/HI/AVH expressed. Diagnostics Vital Signs (24Hr): Vital Signs - 24 hr 05/04/22 18:00 05/05/22 08:30 Temperature 97.6 F 97.0 F Pulse Rate 71 71 Respiratory Rate 20 18 Blood Pressure 135/76 132/57 L Pulse Oximetry 95 95 Oxygen Delivery Method Room Air Room Air BMI result Body Mass Index 30.9 Labs 05/03/22 20:00 05/05/22 08:38 Labs: Laboratory Results - last 48 hr 05/03/22 05/03/22 05/03/22 19:44 19:44 20:00 WBC RBC Hgb Hct MCV MCH MCHC RDW Plt Count MPV Immature Gran % (Auto) Neut % (Auto) Lymph % (Auto) Dillon % (Auto) Eos % (Auto) Baso % (Auto) Lymph # (Auto) Dillon # (Auto) Eos # (Auto) Baso # (Auto) Abs Immat Gran (auto) Absolute Neuts (auto) Absolute Nucleated RBC Nucleated RBC % (auto) Sodium Potassium Chloride Carbon Dioxide Anion Gap BUN Creatinine Estim Creat Clear Calc Estimated GFR Random Glucose Fasting Glucose Estimat Average Glucose Hemoglobin A1c % Calcium Total Bilirubin AST ALT Alkaline Phosphatase Total Protein Albumin Triglycerides Cholesterol LDL Cholesterol, Calc HDL Cholesterol Vitamin B12 Folate TSH Salicylates < 5.0 L Urine Opiates Screen Not Detected Urine Fentanyl Screen Not Detected Acetaminophen < 17 Ur Barbiturates Screen Not Detected Ur Phencyclidine Scrn Not Detected Ur Amphetamines Screen Not Detected U Benzodiazepines Scrn Not Detected Urine Cocaine Screen Not Detected U Marijuana (THC) Screen Not Detected Ethyl Alcohol COVID-19 ([facility]) Negative COVID-19 Clin Com See Note 05/03/22 05/03/22 05/05/22 20:00 20:00 08:38 WBC 7.1 RBC 4.23 L Hgb 13.0 L Hct 37.2 L MCV 87.9 MCH 30.7 MCHC 34.9 RDW 11.6 Plt Count 258 MPV 9.3 L Immature Gran % (Auto) 0.4 Neut % (Auto) 67.9 Lymph % (Auto) 21.4 Dillon % (Auto) 7.1 Eos % (Auto) 2.8 Baso % (Auto) 0.4 Lymph # (Auto) 1.5 Dillon # (Auto) 0.5 Eos # (Auto) 0.2 Baso # (Auto) 0.0 Abs Immat Gran (auto) 0.03 Absolute Neuts (auto) 4.8 Absolute Nucleated RBC 0.000 Nucleated RBC % (auto) 0.0 Sodium 135 140 Potassium 4.4 4.4 Chloride 96 101 Carbon Dioxide 29 29 Anion Gap 14 14 BUN 9 17 H Creatinine 0.91 0.86 Estim Creat Clear Calc 149.3 157.9 Estimated GFR > 60 > 60 Random Glucose 95 Fasting Glucose 95 Estimat Average Glucose Hemoglobin A1c % Calcium 9.0 9.2 Total Bilirubin 1.1 H 0.5 AST 36 20 ALT 51 H 37 Alkaline Phosphatase 73 58 Total Protein 6.1 L 6.5 Albumin 3.7 4.0 Triglycerides 168 Cholesterol 174 LDL Cholesterol, Calc 120 HDL Cholesterol 21 Vitamin B12 515 Folate 9.7 TSH 0.52 Salicylates Urine Opiates Screen Urine Fentanyl Screen Acetaminophen Ur Barbiturates Screen Ur Phencyclidine Scrn Ur Amphetamines Screen U Benzodiazepines Scrn Urine Cocaine Screen U Marijuana (THC) Screen Ethyl Alcohol < 10 COVID-19 ([facility]) COVID-19 Clin Com 05/05/22 08:38 WBC RBC Hgb Hct MCV MCH MCHC RDW Plt Count MPV Immature Gran % (Auto) Neut % (Auto) Lymph % (Auto) Dillon % (Auto) Eos % (Auto) Baso % (Auto) Lymph # (Auto) Dillon # (Auto) Eos # (Auto) Baso # (Auto) Abs Immat Gran (auto) Absolute Neuts (auto) Absolute Nucleated RBC Nucleated RBC % (auto) Sodium Potassium Chloride Carbon Dioxide Anion Gap BUN Creatinine Estim Creat Clear Calc Estimated GFR Random Glucose Fasting Glucose Estimat Average Glucose 97 Hemoglobin A1c % 5.0 Calcium Total Bilirubin AST ALT Alkaline Phosphatase Total Protein Albumin Triglycerides Cholesterol LDL Cholesterol, Calc HDL Cholesterol Vitamin B12 Folate TSH Salicylates Urine Opiates Screen Urine Fentanyl Screen Acetaminophen Ur Barbiturates Screen Ur Phencyclidine Scrn Ur Amphetamines Screen U Benzodiazepines Scrn Urine Cocaine Screen U Marijuana (THC) Screen Ethyl Alcohol COVID-19 ([facility]) COVID-19 Clin Com Imaging Radiology Impressions: ITS Impressions Chest X-Ray 05/03/22 20:22 IMPRESSION: Multifocal areas of groundglass infiltrate. Small left pleural effusion. Findings suggestive of viral pneumonia. Medications Medications Current Medications Acetaminophen (Acetaminophen 325 Mg Tablet) 650 mg PO Q6H PRN PRN Reason: Headache/Pain Mild Scale (1-3) Al Hydroxide/Mg Hydroxide (Magnesium Hydrox/Alum Hydrox 30 Ml Oral.Susp) 30 ml PO Q6H PRN PRN Reason: Heartburn/Nausea Last Admin: 05/04/22 22:17 Dose: 30 ml Amoxicillin/Clavulanate Potassium (Amoxicillin/Potassium Clav 875 Mg Tablet) 875 mg PO BID [facility] Last Admin: 05/05/22 08:31 Dose: 875 mg Escitalopram Oxalate (Escitalopram Oxalate 10 Mg Tablet) 10 mg PO DAILY [facility] Last Admin: 05/05/22 08:32 Dose: 10 mg Hydroxyzine HCl (Hydroxyzine Hcl 25 Mg Tablet) 25 mg PO Q6H PRN PRN Reason: Anxiety Magnesium Hydroxide (Milk Of Magnesia 30 Ml Oral.Susp) 30 ml PO DAILY PRN PRN Reason: Constipation Last Admin: 05/05/22 10:50 Dose: 30 ml Methadone HCl (Methadone Hcl 20 Mg/2 Ml Oral.Conc) 20 mg PO DAILY [facility] Nicotine (Nicotine 21 Mg Patch.Td24) 21 mg TRANSDERMA DAILY [facility] Last Admin: 05/05/22 08:32 Dose: 21 mg Nicotine Polacrilex (Nicotine Polacrilex 2 Mg Gum) 4 mg BUCCAL Q2H PRN PRN Reason: nicotine cravings Last Admin: 05/04/22 19:19 Dose: 4 mg Trazodone HCl (Trazodone Hcl 100 Mg Tablet) 100 mg PO BEDTIME PRN PRN Reason: Insomnia Allergies Allergies Allergy/AdvReac Type Severity Reaction Status Date / Time Seasonal Allergies Allergy Mild Runny Nose Verified 05/03/22 19:35 Assessment & Plan Assessment & Plan (1) Opioid use disorder, severe, dependence: Status: Acute Code(s): F11.20 - Opioid dependence, uncomplicated Assessment and Plan: * decrease dose to 20mg QD * will check in daily regarding dose and if he wishes to continue decreasing (2) Major depressive disorder, recurrent severe without psychotic features: Status: Acute Code(s): F33.2 - Major depressive disorder, recurrent severe without psychotic features (3) Suicidal ideation: Status: Acute Code(s): R45.851 - Suicidal ideations (4) Viral pneumonia: Status: Acute Code(s): J12.9 - Viral pneumonia, unspecified Plan Patient chronically depressed has not received prior treatment hopeless helpless despondent self-critical with critical thoughts of why he can not remain sober has limited education regarding both depression opiate dependence open to seeing someone from the addiction team currently on methadone t.i.d. Lexapro amoxicillin for pneumonia Would benefit from psychoeducation aggressive treatment of depression discussed different options for medically assisted treatment would probably also benefit from SSD if he qualifies Monitor pulmonary symptoms 05/05: increase trazodone to 100 mg PRN QHS per pt request, otherwise continue with lexapro 10. also discussed wellbutrin, which pt decided to hold on starting now but may decide to start later if lexapro is inadequately effective. Patient educated on: diagnosis and medication risk/benefits Reason for contiued inpatient stay Substantial Risk for: inability to function and rapid decompensation Time Spent With Patient Time: Total time managing care of this patient today __35__ minutes.
[2022-05-05 21:26] VITALS: BP 137/70; PULSE 68; TEMP 36.8; O2SAT 95
[2022-05-05] MEDS: traZODone HCL 100 MG TABLET PO (22:02)
[2022-05-05] MEDS: Magnesium Hydrox/Alum Hydrox 30 ML ORAL.SUSP PO (22:08)
[2022-05-05] MEDS: Nicotine Polacrilex 2 MG GUM 4 MG BUCCAL (23:39)
[2022-05-06 06:00] VITALS: BP 122/72; PULSE 70; RESP 18; TEMP 36.6; O2SAT 95
[2022-05-06] MEDS: Amoxicillin/Potassium Clav 875 MG TABLET PO ×2 (10:11→21:07)
[2022-05-06] MEDS: methADONE HCl 20 MG/2 ML ORAL.CONC PO (10:11)
[2022-05-06] MEDS: Escitalopram Oxalate 10 MG TABLET PO (10:11)
[2022-05-06] MEDS: Nicotine 21 MG PATCH.TD24 TRANSDERMA (10:11)
--- NOTE | 2022-05-06 14:41 | MHC.RECOVRN ---
Met with pt to follow up regarding decrease in methadone. Pt present in milieu, alert, engaged, does not appear to be experiencing withdrawal. Pt reports yesterday afternoon/evening he got scared about decrease to 20 mg and feeling withdrawal symptoms. Pt reports 20 mg today has been adequate and does not want to increase back to 30 mg. Pt has not yet spoken to potential sober living placement regarding ability to be on MOUD while at the house. Pt will attempt to contact them this evening. Pt unsure of plan regarding MOUD at this time, would like to continue with 20 mg methadone. Ioana Rivas APRN, aware.
--- NOTE | 2022-05-06 16:33 | P.PNPSI_ITS ---
Subjective Subjective Date of Service: 05/06/22 Reason For Visit: od Interim History: calm, cooperative. working on his dispo plan. discussed D/C target of early next week, he will approach contacts with [facility] and sober [place] with that in mind. states he had a pretty phenomenal sleep last night. interested in mood stabilizers. per staff, attending groups. positive interactions. eating well. no dep. anx 3-4. DFA 2 nights ago but slept well last night. in bed after 1230. Mental Status Exam Mental Status Exam Narrative: adequately dressed and groomed. cooperative, no PMA/PMR. speech nml rate, amount, loudness, tone, latency. thoughts linear and logica. no paranoia or d elusions. affect constricted, normo-intense, non-labile. no SI/HI/AVH expressed. Diagnostics Vital Signs (24Hr): Vital Signs - 24 hr 05/05/22 21:26 05/06/22 06:00 Temperature 98.2 F 97.8 F Pulse Rate 68 70 Respiratory Rate 18 Blood Pressure 137/70 122/72 Pulse Oximetry 95 95 Oxygen Delivery Method Room Air Room Air BMI result Body Mass Index 30.9 Labs 05/03/22 20:00 05/05/22 08:38 Labs: Laboratory Results - last 48 hr 05/05/22 05/05/22 08:38 08:38 Sodium 140 Potassium 4.4 Chloride 101 Carbon Dioxide 29 Anion Gap 14 BUN 17 H Creatinine 0.86 Estim Creat Clear Calc 157.9 Estimated GFR > 60 Fasting Glucose 95 Estimat Average Glucose 97 Hemoglobin A1c % 5.0 Calcium 9.2 Total Bilirubin 0.5 AST 20 ALT 37 Alkaline Phosphatase 58 Total Protein 6.5 Albumin 4.0 Triglycerides 168 Cholesterol 174 LDL Cholesterol, Calc 120 HDL Cholesterol 21 Vitamin B12 515 Folate 9.7 TSH 0.52 Imaging Radiology Impressions: ITS Impressions Chest X-Ray 05/03/22 20:22 IMPRESSION: Multifocal areas of groundglass infiltrate. Small left pleural effusion. Findings suggestive of viral pneumonia. Medications Medications Current Medications Acetaminophen (Acetaminophen 325 Mg Tablet) 650 mg PO Q6H PRN PRN Reason: Headache/Pain Mild Scale (1-3) Al Hydroxide/Mg Hydroxide (Magnesium Hydrox/Alum Hydrox 30 Ml Oral.Susp) 30 ml PO Q6H PRN PRN Reason: Heartburn/Nausea Last Admin: 05/05/22 22:08 Dose: 30 ml Amoxicillin/Clavulanate Potassium (Amoxicillin/Potassium Clav 875 Mg Tablet) 875 mg PO BID [facility] Last Admin: 05/06/22 10:11 Dose: 875 mg Escitalopram Oxalate (Escitalopram Oxalate 10 Mg Tablet) 10 mg PO DAILY [facility] Last Admin: 05/06/22 10:11 Dose: 10 mg Hydroxyzine HCl (Hydroxyzine Hcl 25 Mg Tablet) 25 mg PO Q6H PRN PRN Reason: Anxiety Magnesium Hydroxide (Milk Of Magnesia 30 Ml Oral.Susp) 30 ml PO DAILY PRN PRN Reason: Constipation Last Admin: 05/05/22 10:50 Dose: 30 ml Methadone HCl (Methadone Hcl 20 Mg/2 Ml Oral.Conc) 20 mg PO DAILY [facility] Last Admin: 05/06/22 10:11 Dose: 20 mg Nicotine (Nicotine 21 Mg Patch.Td24) 21 mg TRANSDERMA DAILY [facility] Last Admin: 05/06/22 10:11 Dose: 21 mg Nicotine Polacrilex (Nicotine Polacrilex 2 Mg Gum) 4 mg BUCCAL Q2H PRN PRN Reason: nicotine cravings Last Admin: 05/05/22 23:39 Dose: 4 mg Trazodone HCl (Trazodone Hcl 100 Mg Tablet) 100 mg PO BEDTIME PRN PRN Reason: Insomnia Last Admin: 05/05/22 22:02 Dose: 100 mg Allergies Allergies Allergy/AdvReac Type Severity Reaction Status Date / Time Seasonal Allergies Allergy Mild Runny Nose Verified 05/03/22 19:35 Assessment & Plan Assessment & Plan (1) Opioid use disorder, severe, dependence: Status: Acute Code(s): F11.20 - Opioid dependence, uncomplicated Assessment and Plan: * decrease dose to 20mg QD * will check in daily regarding dose and if he wishes to continue decreasing (2) Major depressive disorder, recurrent severe without psychotic features: Status: Acute Code(s): F33.2 - Major depressive disorder, recurrent severe without psychotic features (3) Suicidal ideation: Status: Acute Code(s): R45.851 - Suicidal ideations (4) Viral pneumonia: Status: Acute Code(s): J12.9 - Viral pneumonia, unspecified Plan Patient chronically depressed has not received prior treatment hopeless helpless despondent self-critical with critical thoughts of why he can not remain sober has limited education regarding both depression opiate dependence open to seeing someone from the addiction team currently on methadone t.i.d. Lexapro amoxicillin for pneumonia Would benefit from psychoeducation aggressive treatment of depression discussed different options for medically assisted treatment would probably also benefit from SSD if he qualifies Monitor pulmonary symptoms 05/05: increase trazodone to 100 mg PRN QHS per pt request, otherwise continue with lexapro 10. also discussed wellbutrin, which pt decided to hold on starting now but may decide to start later if lexapro is inadequately effective. 05/06: continue current mgmt. T/C trial of baclofen for AUD at 30 mg or less as supported by [facility] database analysis. otherwise continue current mgmt. Patient educated on: medication risk/benefits and substance abuse Reason for contiued inpatient stay Substantial Risk for: inability to function and rapid decompensation Time Spent With Patient Time: Total time managing care of this patient today _25___ minutes.
[2022-05-06 21:00] VITALS: BP 118/55; PULSE 82; RESP 18; TEMP 36.8; O2SAT 96
[2022-05-07 09:05] VITALS: BP 128/63; PULSE 78; RESP 18; TEMP 36.6; O2SAT 97
[2022-05-07] MEDS: methADONE HCl 20 MG/2 ML ORAL.CONC PO (09:25)
[2022-05-07] MEDS: Escitalopram Oxalate 10 MG TABLET PO (09:25)
[2022-05-07] MEDS: Amoxicillin/Potassium Clav 875 MG TABLET PO ×2 (09:25→21:08)
[2022-05-07] MEDS: Nicotine 21 MG PATCH.TD24 TRANSDERMA (09:26)
--- NOTE | 2022-05-07 13:12 | MHC.RECOVRN ---
Met with pt to follow up regarding methadone dose and discuss plan. Pt laying in bed, asleep, wakes to voice. Moved to group room for discussion. Pt reporting feeling tired, appears sedated. Pt spoke with potential sober living in [place], was informed there is not bed availability currently but is able to be on MOUD if eventually placed there. Pt plans to look into [facility] facilities in the surrounding areas. Pt would like to transition to Suboxone while inpatient. Pt feels this would create a more smooth transition to programs in [facility]. If pt unable to transition to Suboxone, he would like to taper methadone. Denies questions or concerns at this time. Discussed with Ioana Rivas APRN.
--- NOTE | 2022-05-07 15:29 | P.EN_ITS ---
Event Note Date of Service: 05/07/22 Event Note: Addiction note Patient met with commercial intelligence manager earlier and expressed desire to transition to Buprenorphine. Also agreeable to continue decreasing methadone dose as well--currently at 20mg QD Plan: -decrease methadone dose to 10mg QD -follow up over the weekend Time Spent With Patient Time: Total time managing care of this patient today ____ minutes.
--- NOTE | 2022-05-07 15:36 | HO.PSYCHPN ---
Subjective Subjective Date of Service: 05/07/22 Reason For Visit: od Interim History: discuss use of baclofen for alcohol use disorder, off-label. pt agrees to trial. slept well. discuss dispo plan. per staff, planning to discharge next tuesday or tuesday. low anx/dep. no AVH. attending groups. sleeping and eating better. Mental Status Exam Mental Status Exam Narrative: adequately dressed and groomed. cooperative, no PMA/PMR. speech nml rate, amount, loudness, tone, latency. thoughts linear and logica. no paranoia or delusions. affect constricted, normo-intense, non-labile. no SI/HI/AVH expressed. Diagnostics Vital Signs (24Hr): Vital Signs - 24 hr 05/06/22 21:00 05/07/22 09:05 Temperature 98.2 F 97.8 F Pulse Rate 82 78 Respiratory Rate 18 18 Blood Pressure 118/55 L 128/63 Pulse Oximetry 96 97 Oxygen Delivery Method Room Air Room Air BMI result Body Mass Index 30.9 Labs 05/03/22 20:00 05/05/22 08:38 Imaging Radiology Impressions: ITS Impressions Chest X-Ray 05/03/22 20:22 IMPRESSION: Multifocal areas of groundglass infiltrate. Small left pleural effusion. Findings suggestive of viral pneumonia. Medications Medications Current Medications Acetaminophen (Acetaminophen 325 Mg Tablet) 650 mg PO Q6H PRN PRN Reason: Headache/Pain Mild Scale (1-3) Al Hydroxide/Mg Hydroxide (Magnesium Hydrox/Alum Hydrox 30 Ml Oral.Susp) 30 ml PO Q6H PRN PRN Reason: Heartburn/Nausea Last Admin: 05/05/22 22:08 Dose: 30 ml Amoxicillin/Clavulanate Potassium (Amoxicillin/Potassium Clav 875 Mg Tablet) 875 mg PO BID [facility] Last Admin: 05/07/22 09:25 Dose: 875 mg Baclofen (Baclofen 10 Mg Tablet) 10 mg PO TID [facility] Escitalopram Oxalate (Escitalopram Oxalate 10 Mg Tablet) 10 mg PO DAILY [facility] Last Admin: 05/07/22 09:25 Dose: 10 mg Hydroxyzine HCl (Hydroxyzine Hcl 25 Mg Tablet) 25 mg PO Q6H PRN PRN Reason: Anxiety Magnesium Hydroxide (Milk Of Magnesia 30 Ml Oral.Susp) 30 ml PO DAILY PRN PRN Reason: Constipation Last Admin: 05/05/22 10:50 Dose: 30 ml Methadone HCl (Methadone Hcl 20 Mg/2 Ml Oral.Conc) 10 mg PO DAILY [facility] Nicotine (Nicotine 21 Mg Patch.Td24) 21 mg TRANSDERMA DAILY [facility] Last Admin: 05/07/22 09:26 Dose: 21 mg Nicotine Polacrilex (Nicotine Polacrilex 2 Mg Gum) 4 mg BUCCAL Q2H PRN PRN Reason: nicotine cravings Last Admin: 05/05/22 23:39 Dose: 4 mg Trazodone HCl (Trazodone Hcl 100 Mg Tablet) 100 mg PO BEDTIME PRN PRN Reason: Insomnia Last Admin: 05/05/22 22:02 Dose: 100 mg Allergies Allergies Allergy/AdvReac Type Severity Reaction Status Date / Time Seasonal Allergies Allergy Mild Runny Nose Verified 05/03/22 19:35 Assessment & Plan Assessment & Plan (1) Opioid use disorder, severe, dependence: Status: Acute Code(s): F11.20 - Opioid dependence, uncomplicated Assessment and Plan: decrease dose to 20mg QD will check in daily regarding dose and if he wishes to continue decreasing (2) Major depressive disorder, recurrent severe without psychotic features: Status: Acute Code(s): F33.2 - Major depressive disorder, recurrent severe without psychotic features (3) Suicidal ideation: Status: Acute Code(s): R45.851 - Suicidal ideations (4) Viral pneumonia: Status: Acute Code(s): J12.9 - Viral pneumonia, unspecified Plan Patient chronically depressed has not received prior treatment hopeless helpless despondent self-critical with critical thoughts of why he can not remain sober has limited education regarding both depression opiate dependence open to seeing someone from the addiction team currently on methadone t.i.d. Lexapro amoxicillin for pneumonia Would benefit from psychoeducation aggressive treatment of depression discussed different options for medically assisted treatment would probably also benefit from SSD if he qualifies Monitor pulmonary symptoms 05/05: increase trazodone to 100 mg PRN QHS per pt request, otherwise continue with lexapro 10. also discussed wellbutrin, which pt decided to hold on starting now but may decide to start later if lexapro is inadequately effective. 05/06: continue current mgmt. T/C trial of baclofen for AUD at 30 mg or less as supported by johana database analysis. otherwise continue current mgmt. 05/07: start baclofen 10 TID off-label for AUD. otherwise continue current mgmt. appears stable, developing dispo plan. Reason for contiued inpatient stay Substantial Risk for: rapid decompensation Time Spent With Patient Time: Total time managing care of this patient today __25__ minutes.
[2022-05-07] MEDS: Baclofen 10 MG TABLET PO ×2 (15:53→21:08)
--- NOTE | 2022-05-07 20:44 | MHC.RECOVSUP ---
? Reason for consult:OPI o? Current location:322-1? o? Identified substance use concern:? -? Support ? Intervention: o? Harm reduction discussion ? Plan: o? Follow up tomorrow? ? Additional information:RC met with pt and discussed RC services, but he said he was all set. I asked him if he was positive and he stated he's going back to [facility].
[2022-05-07 21:00] VITALS: BP 143/65; PULSE 66; RESP 16; TEMP 36.6; O2SAT 96
[2022-05-08 09:00] VITALS: BP 139/74; PULSE 81; TEMP 36.3; O2SAT 96
[2022-05-08] MEDS: Amoxicillin/Potassium Clav 875 MG TABLET PO ×2 (09:39→21:04)
[2022-05-08] MEDS: methADONE HCl 20 MG/2 ML ORAL.CONC 10 MG PO (09:39)
[2022-05-08] MEDS: Nicotine 21 MG PATCH.TD24 TRANSDERMA (09:39)
[2022-05-08] MEDS: Escitalopram Oxalate 10 MG TABLET PO (09:39)
[2022-05-08] MEDS: Baclofen 10 MG TABLET PO ×3 (09:40→21:04)
--- NOTE | 2022-05-08 11:30 | HO.ADDICTPRO ---
Subjective Subjective Date of Service: 05/08/22 Reason For Visit: od Interim History: Patient seen in follow up. Methadone decreased to 10mg today. Patient denies any withdrawal sx. Appearing comfortable, reading a book upon this writers arrival. Would like to continue with plan to taper methadone and start bup. Discussed using comfort medications for any sx that may arise when methadone is stopped. Review of Systems Constitutional: Reports as per HPI and Reports no additional constitutional complaints Mental Status Exam Mental Status Exam Patient Appearance: Well Grooomed and Appropriate Level of Consciousness: Awake, Appropriate and Alert Patient Behavior: Appropriate and Cooperative Speech Pattern: Clear Thought Process: Goal Oriented Thought Content: positive for Goal Oriented Judgement: Good Diagnostics Vital Signs (24Hr): Vital Signs - 24 hr 05/07/22 21:00 05/08/22 09:00 Temperature 97.8 F 97.3 F Pulse Rate 66 81 Respiratory Rate 16 Blood Pressure 143/65 H 139/74 Pulse Oximetry 96 96 Oxygen Delivery Method Room Air Room Air BMI result Body Mass Index 30.9 Labs 05/03/22 20:00 05/05/22 08:38 Imaging Radiology Impressions: ITS Impressions Chest X-Ray 05/03/22 20:22 IMPRESSION: Multifocal areas of groundglass infiltrate. Small left pleural effusion. Findings suggestive of viral pneumonia. Medications Medications Current Medications Acetaminophen (Acetaminophen 325 Mg Tablet) 650 mg PO Q6H PRN PRN Reason: Headache/Pain Mild Scale (1-3) Al Hydroxide/Mg Hydroxide (Magnesium Hydrox/Alum Hydrox 30 Ml Oral.Susp) 30 ml PO Q6H PRN PRN Reason: Heartburn/Nausea Last Admin: 05/05/22 22:08 Dose: 30 ml Amoxicillin/Clavulanate Potassium (Amoxicillin/Potassium Clav 875 Mg Tablet) 875 mg PO BID [facility] Last Admin: 05/08/22 09:39 Dose: 875 mg Baclofen (Baclofen 10 Mg Tablet) 10 mg PO TID [facility] Last Admin: 05/08/22 09:40 Dose: 10 mg Escitalopram Oxalate (Escitalopram Oxalate 10 Mg Tablet) 10 mg PO DAILY [facility] Last Admin: 05/08/22 09:39 Dose: 10 mg Hydroxyzine HCl (Hydroxyzine Hcl 25 Mg Tablet) 25 mg PO Q6H PRN PRN Reason: Anxiety Magnesium Hydroxide (Milk Of Magnesia 30 Ml Oral.Susp) 30 ml PO DAILY PRN PRN Reason: Constipation Last Admin: 05/05/22 10:50 Dose: 30 ml Methadone HCl (Methadone Hcl 20 Mg/2 Ml Oral.Conc) 10 mg PO DAILY [facility] Last Admin: 05/08/22 09:39 Dose: 10 mg Nicotine (Nicotine 21 Mg Patch.Td24) 21 mg TRANSDERMA DAILY [facility] Last Admin: 05/08/22 09:39 Dose: 21 mg Nicotine Polacrilex (Nicotine Polacrilex 2 Mg Gum) 4 mg BUCCAL Q2H PRN PRN Reason: nicotine cravings Last Admin: 05/05/22 23:39 Dose: 4 mg Trazodone HCl (Trazodone Hcl 100 Mg Tablet) 100 mg PO BEDTIME PRN PRN Reason: Insomnia Last Admin: 05/05/22 22:02 Dose: 100 mg Allergies Allergies Allergy/AdvReac Type Severity Reaction Status Date / Time Seasonal Allergies Allergy Mild Runny Nose Verified 05/03/22 19:35 Assessment & Plan Assessment & Plan (1) Opioid use disorder, severe, dependence: Status: Acute Code(s): F11.20 - Opioid dependence, uncomplicated Assessment and Plan: d/c methadone plan to start suboxone Tuesday afternoon or Tuesday AM PRN comfort medications as necessary for any anxiety or restlessness that may present will follow up Tuesday Total time managing care of this patient today _25___ minutes.
[2022-05-08] MEDS: Nicotine Polacrilex 2 MG GUM 4 MG BUCCAL (12:43)
--- NOTE | 2022-05-08 14:46 | MHC.RECOVSUP ---
? Reason for consult: recovery Support o Current location: 322-1? o Identified substance use concern: JEWEL? ? Additional information:?Clinical Sociologist checked in with patient. Patient isn't interested in connecting with a recovery advocate at this time.
[2022-05-08] MEDS: Omeprazole 20 MG CAPSULE.DR PO (15:48)
[2022-05-08 20:53] VITALS: BP 125/62; PULSE 67; RESP 16; TEMP 36.6; O2SAT 98
--- NOTE | 2022-05-08 20:56 | HO.PSYCHPN ---
Subjective Subjective Date of Service: 05/08/22 Reason For Visit: od Interim History: c/o strange throat sensation which started several weeks prior to admission. it is associated with poor diet, per his report. he feels a lump in his throat and continues to perceive a sense of pressure in his throat after swallowing. agrees to trial of omeprazole to r/o GERD. per staff, sleeping well. active, social. attending groups. eating. c/o strange sensation in throat. Mental Status Exam Mental Status Exam Narrative: adequately dressed and groomed. cooperative, no PMA/PMR. speech nml rate, amount, loudness, tone, latency. thoughts linear and logica. no paranoia or delusions. affect constricted, normo-intense, non-labile. no SI/HI/AVH expressed. Diagnostics Vital Signs (24Hr): Vital Signs - 24 hr 05/07/22 21:00 05/08/22 09:00 05/08/22 20:53 Temperature 97.8 F 97.3 F 97.8 F Pulse Rate 66 81 67 Respiratory Rate 16 16 Blood Pressure 143/65 H 139/74 125/62 Pulse Oximetry 96 96 98 Oxygen Delivery Method Room Air Room Air Room Air BMI result Body Mass Index 30.9 Labs 05/03/22 20:00 05/05/22 08:38 Imaging Radiology Impressions: ITS Impressions Chest X-Ray 05/03/22 20:22 IMPRESSION: Multifocal areas of groundglass infiltrate. Small left pleural effusion. Findings suggestive of viral pneumonia. Medications Medications Current Medications Acetaminophen (Acetaminophen 325 Mg Tablet) 650 mg PO Q6H PRN PRN Reason: Headache/Pain Mild Scale (1-3) Al Hydroxide/Mg Hydroxide (Magnesium Hydrox/Alum Hydrox 30 Ml Oral.Susp) 30 ml PO Q6H PRN PRN Reason: Heartburn/Nausea Last Admin: 05/05/22 22:08 Dose: 30 ml Amoxicillin/Clavulanate Potassium (Amoxicillin/Potassium Clav 875 Mg Tablet) 875 mg PO BID [facility] Last Admin: 05/08/22 09:39 Dose: 875 mg Baclofen (Baclofen 10 Mg Tablet) 10 mg PO TID [facility] Last Admin: 05/08/22 15:48 Dose: 10 mg Clonidine HCl (Clonidine Hcl 0.1 Mg Tablet) 0.1 mg PO TID PRN; Protocol PRN Reason: anxiety/restlessness Escitalopram Oxalate (Escitalopram Oxalate 10 Mg Tablet) 10 mg PO DAILY [facility] Last Admin: 05/08/22 09:39 Dose: 10 mg Hydroxyzine HCl (Hydroxyzine Hcl 25 Mg Tablet) 25 mg PO Q6H PRN PRN Reason: Anxiety Magnesium Hydroxide (Milk Of Magnesia 30 Ml Oral.Susp) 30 ml PO DAILY PRN PRN Reason: Constipation Last Admin: 05/05/22 10:50 Dose: 30 ml Nicotine (Nicotine 21 Mg Patch.Td24) 21 mg TRANSDERMA DAILY [facility] Last Admin: 05/08/22 09:39 Dose: 21 mg Nicotine Polacrilex (Nicotine Polacrilex 2 Mg Gum) 4 mg BUCCAL Q2H PRN PRN Reason: nicotine cravings Last Admin: 05/08/22 12:43 Dose: 4 mg Omeprazole (Omeprazole 20 Mg Capsule.Dr) 20 mg PO DAILY@0800 [facility] Last Admin: 05/08/22 15:48 Dose: 20 mg Trazodone HCl (Trazodone Hcl 100 Mg Tablet) 100 mg PO BEDTIME PRN PRN Reason: Insomnia Last Admin: 05/05/22 22:02 Dose: 100 mg Allergies Allergies Allergy/AdvReac Type Severity Reaction Status Date / Time Seasonal Allergies Allergy Mild Runny Nose Verified 05/03/22 19:35 Assessment & Plan Assessment & Plan (1) Opioid use disorder, severe, dependence: Status: Acute Code(s): F11.20 - Opioid dependence, uncomplicated Assessment and Plan: d/c methadone plan to start suboxone Tuesday or Tuesday AM PRN comfort medications as necessary for any anxiety or restlessness that may present will follow up Tuesday (2) Major depressive disorder, recurrent severe without psychotic features: Status: Acute Code(s): F33.2 - Major depressive disorder, recurrent severe without psychotic features (3) Suicidal ideation: Status: Acute Code(s): R45.851 - Suicidal ideations Plan Patient chronically depressed has not received prior treatment hopeless helpless despondent self-critical with critical thoughts of why he can not remain sober has limited education regarding both depression opiate dependence open to seeing someone from the addiction team currently on methadone t.i.d. Lexapro amoxicillin for pneumonia Would benefit from psychoeducation aggressive treatment of depression discussed different options for medically assisted treatment would probably also benefit from SSD if he qualifies Monitor pulmonary symptoms 05/05: increase trazodone to 100 mg PRN QHS per pt request, otherwise continue with lexapro 10.? also discussed wellbutrin, which pt decided to hold on starting now but may decide to start later if lexapro is inadequately effective. 05/06: continue current mgmt.? T/C trial of baclofen for AUD at 30 mg or less as supported by johana database analysis.? otherwise continue current mgmt. 05/07: start baclofen 10 TID off-label for AUD.? otherwise continue current mgmt.? appears stable, developing dispo plan. 05/08: DC methadone and start suboxone tuesday. start omeprazole due to strange sensation in throat, r/o GERD. otherwise continue current mgmt. Reason for contiued inpatient stay Substantial Risk for: inability to function and rapid decompensation Time Spent With Patient Time: Total time managing care of this patient today __15__ minutes.
[2022-05-09 08:52] VITALS: BP 141/60; PULSE 58; TEMP 36.6; O2SAT 96
[2022-05-09] MEDS: Baclofen 10 MG TABLET PO ×3 (08:57→21:03)
[2022-05-09] MEDS: Nicotine 21 MG PATCH.TD24 TRANSDERMA (08:57)
[2022-05-09] MEDS: Omeprazole 20 MG CAPSULE.DR PO (08:58)
[2022-05-09] MEDS: Escitalopram Oxalate 10 MG TABLET PO (08:58)
[2022-05-09] MEDS: Throat Lozenge, Medicated LOZENGE 1 LOZENGE MUCOUS MEM (09:36)
[2022-05-09 14:24] LABS: IDNOW Serial# 6674DD1D
[2022-05-09 14:25] LABS: Strep A Nucleic Acid Negative (Negative)
[2022-05-09 14:29] LABS: COVID-19 Test Negative (Negative); IDNOW Serial# 55D5AD1C
--- NOTE | 2022-05-09 16:42 | HO.PSYCHPN ---
Subjective Subjective Date of Service: 05/09/22 Reason For Visit: od Interim History: calm, cooperative. stable presentation. throat worsening, thinks he may be getting sick. omeprazole DCed. COVID and strep NEG. second day of no methadone, possibly experiencing withdrawal. per staff, slept well, social. anx/dep 04/23. safe. D/C /. exercising, showering. attending groups. Mental Status Exam Mental Status Exam Narrative: adequately dressed and groomed. cooperative, no PMA/PMR. speech nml rate, amount, loudness, tone, latency. thoughts linear and logica. no paranoia or delusions. affect constricted, normo-intense, non-labile. no SI/HI/AVH expressed. Diagnostics Vital Signs (24Hr): Vital Signs - 24 hr 05/08/22 20:53 05/09/22 08:52 Temperature 97.8 F 97.9 F Pulse Rate 67 58 Respiratory Rate 16 Blood Pressure 125/62 141/60 H Pulse Oximetry 98 96 Oxygen Delivery Method Room Air Room Air BMI result Body Mass Index 30.9 Labs 05/03/22 20:00 05/05/22 08:38 Labs: Laboratory Results - last 48 hr 05/09/22 05/09/22 13:54 13:57 COVID-19 ([facility]) Negative COVID-19 Clin Com See Note S. pyogenes GrpA [facility]HE[facility] Negative Imaging Radiology Impressions: ITS Impressions Chest X-Ray 05/03/22 20:22 IMPRESSION: Multifocal areas of groundglass infiltrate. Small left pleural effusion. Findings suggestive of viral pneumonia. Medications Medications Current Medications Acetaminophen (Acetaminophen 325 Mg Tablet) 650 mg PO Q4H PRN PRN Reason: Headache/Pain Mild Scale (1-3) Al Hydroxide/Mg Hydroxide (Magnesium Hydrox/Alum Hydrox 30 Ml Oral.Susp) 30 ml PO Q6H PRN PRN Reason: Heartburn/Nausea Last Admin: 05/05/22 22:08 Dose: 30 ml Baclofen (Baclofen 10 Mg Tablet) 10 mg PO TID [place] Last Admin: 05/09/22 15:59 Dose: 10 mg Benzocaine (Throat Lozenge, Medicated Lozenge) 1 lozenge MUCOUS MEM Q2H PRN PRN Reason: Sore Throat Last Admin: 05/09/22 09:36 Dose: 1 lozenge Clonidine HCl (Clonidine Hcl 0.1 Mg Tablet) 0.1 mg PO TID PRN; Protocol PRN Reason: anxiety/restlessness Escitalopram Oxalate (Escitalopram Oxalate 10 Mg Tablet) 10 mg PO DAILY [facility] Last Admin: 05/09/22 08:58 Dose: 10 mg Hydroxyzine HCl (Hydroxyzine Hcl 25 Mg Tablet) 25 mg PO Q6H PRN PRN Reason: Anxiety Magnesium Hydroxide (Milk Of Magnesia 30 Ml Oral.Susp) 30 ml PO DAILY PRN PRN Reason: Constipation Last Admin: 05/05/22 10:50 Dose: 30 ml Nicotine (Nicotine 21 Mg Patch.Td24) 21 mg TRANSDERMA DAILY [facility] Last Admin: 05/09/22 08:57 Dose: 21 mg Nicotine Polacrilex (Nicotine Polacrilex 2 Mg Gum) 4 mg BUCCAL Q2H PRN PRN Reason: nicotine cravings Last Admin: 05/08/22 12:43 Dose: 4 mg Trazodone HCl (Trazodone Hcl 100 Mg Tablet) 100 mg PO BEDTIME PRN PRN Reason: Insomnia Last Admin: 05/05/22 22:02 Dose: 100 mg Allergies Allergies Allergy/AdvReac Type Severity Reaction Status Date / Time Seasonal Allergies Allergy Mild Runny Nose Verified 05/03/22 19:35 Assessment & Plan Assessment & Plan (1) Opioid use disorder, severe, dependence: Status: Acute Code(s): F11.20 - Opioid dependence, uncomplicated Assessment and Plan: d/c methadone plan to start suboxone Tuesday or Tuesday AM PRN comfort medications as necessary for any anxiety or restlessness that may present will follow up Tuesday (2) Major depressive disorder, recurrent severe without psychotic features: Status: Acute Code(s): F33.2 - Major depressive disorder, recurrent severe without psychotic features (3) Suicidal ideation: Status: Acute Code(s): R45.851 - Suicidal ideations Plan Patient chronically depressed has not received prior treatment hopeless helpless despondent self-critical with critical thoughts of why he can not remain sober has limited education regarding both depression opiate dependence open to seeing someone from the addiction team currently on methadone t.i.d. Lexapro amoxicillin for pneumonia Would benefit from psychoeducation aggressive treatment of depression discussed different options for medically assisted treatment would probably also benefit from SSD if he qualifies Monitor pulmonary symptoms 05/05: increase trazodone to 100 mg PRN QHS per pt request, otherwise continue with lexapro 10.? also discussed wellbutrin, which pt decided to hold on starting now but may decide to start later if lexapro is inadequately effective. 05/06: continue current mgmt.? T/C trial of baclofen for AUD at 30 mg or less as supported by johana database analysis.? otherwise continue current mgmt. 05/07: start baclofen 10 TID off-label for AUD.? otherwise continue current mgmt.? appears stable, developing dispo plan. 05/08: DC methadone and start suboxone tuesday. start omeprazole due to strange sensation in throat, r/o GERD. otherwise continue current mgmt. 05/09: has been three days since last methadone, malaise likely start of opioid withdrawal. planning to start suboxone tomorrow. COVID and strep NEG. sore throat worse, omep DCed as not helpful. continue current mgmt otherwise. Reason for contiued inpatient stay Substantial Risk for: inability to function and rapid decompensation Time Spent With Patient Time: Total time managing care of this patient today ____ minutes.
[2022-05-09 21:01] VITALS: BP 130/61; PULSE 55; RESP 20; TEMP 36.4; O2SAT 96
[2022-05-10 09:15] VITALS: BP 131/72; PULSE 78; RESP 20; TEMP 36.5; O2SAT 97
[2022-05-10] MEDS: Nicotine 21 MG PATCH.TD24 TRANSDERMA (09:17)
[2022-05-10] MEDS: Escitalopram Oxalate 10 MG TABLET PO (09:18)
[2022-05-10] MEDS: Baclofen 10 MG TABLET PO ×3 (09:18→20:20)
--- NOTE | 2022-05-10 11:48 | PC.NURSE ---
Pt tapering off methadone, denies any symptoms of withdrawal.
--- NOTE | 2022-05-10 13:28 | P.PNADD_ITS ---
Subjective Subjective Date of Service: 05/10/22 Reason For Visit: od Interim History: Patient seen in follow up on M3. Last methadone dose of 10mg administered Sat., 05/08. Patient seen today, appearing comfortable. Denies any withdrawal sx. Denies any issues with sleep. Eager to know discharge plan--date and time. Per patient and SW, disposition is to [facility] in [facility]. Review of Systems Constitutional: Reports as per HPI Mental Status Exam Mental Status Exam Patient Appearance: Well Grooomed and Appropriate Level of Consciousness: Awake, Appropriate and Alert Patient Behavior: Appropriate and Cooperative Speech Pattern: Clear Thought Process: Goal Oriented Thought Content: positive for Goal Oriented Judgement: Good Diagnostics Vital Signs (24Hr): Vital Signs - 24 hr 05/09/22 21:01 05/10/22 09:15 Temperature 97.5 F 97.7 F Pulse Rate 55 78 Respiratory Rate 20 20 Blood Pressure 130/61 131/72 Pulse Oximetry 96 97 Oxygen Delivery Method Room Air Room Air BMI result Body Mass Index 30.9 Labs 05/03/22 20:00 05/05/22 08:38 Labs: Laboratory Results - last 48 hr 05/09/22 05/09/22 13:54 13:57 COVID-19 ([facility]) Negative COVID-19 Clin Com See Note S. pyogenes GrpA [facility] Negative Imaging Radiology Impressions: ITS Impressions Chest X-Ray 05/03/22 20:22 IMPRESSION: Multifocal areas of groundglass infiltrate. Small left pleural effusion. Findings suggestive of viral pneumonia. Medications Medications Current Medications Acetaminophen (Acetaminophen 325 Mg Tablet) 650 mg PO Q4H PRN PRN Reason: Headache/Pain Mild Scale (1-3) Al Hydroxide/Mg Hydroxide (Magnesium Hydrox/Alum Hydrox 30 Ml Oral.Susp) 30 ml PO Q6H PRN PRN Reason: Heartburn/Nausea Last Admin: 05/05/22 22:08 Dose: 30 ml Baclofen (Baclofen 10 Mg Tablet) 10 mg PO TID [facility] Last Admin: 05/10/22 09:18 Dose: 10 mg Benzocaine (Throat Lozenge, Medicated Lozenge) 1 lozenge MUCOUS MEM Q2H PRN PRN Reason: Sore Throat Last Admin: 05/09/22 09:36 Dose: 1 lozenge Buprenorphine/Naloxone (Buprenorphine/Naloxone 2/0.5mg Film) 1 film SUBLINGUAL DAILY [facility] Clonidine HCl (Clonidine Hcl 0.1 Mg Tablet) 0.1 mg PO TID PRN; Protocol PRN Reason: anxiety/restlessness Escitalopram Oxalate (Escitalopram Oxalate 10 Mg Tablet) 10 mg PO DAILY [facility] Last Admin: 05/10/22 09:18 Dose: 10 mg Hydroxyzine HCl (Hydroxyzine Hcl 25 Mg Tablet) 25 mg PO Q6H PRN PRN Reason: Anxiety Magnesium Hydroxide (Milk Of Magnesia 30 Ml Oral.Susp) 30 ml PO DAILY PRN PRN Reason: Constipation Last Admin: 05/05/22 10:50 Dose: 30 ml Nicotine (Nicotine 21 Mg Patch.Td24) 21 mg TRANSDERMA DAILY [facility] Last Admin: 05/10/22 09:17 Dose: 21 mg Nicotine Polacrilex (Nicotine Polacrilex 2 Mg Gum) 4 mg BUCCAL Q2H PRN PRN Reason: nicotine cravings Last Admin: 05/08/22 12:43 Dose: 4 mg Trazodone HCl (Trazodone Hcl 100 Mg Tablet) 100 mg PO BEDTIME PRN PRN Reason: Insomnia Last Admin: 05/05/22 22:02 Dose: 100 mg Allergies Allergies Allergy/AdvReac Type Severity Reaction Status Date / Time Seasonal Allergies Allergy Mild Runny Nose Verified 05/03/22 19:35 Assessment & Plan Assessment & Plan (1) Opioid use disorder, severe, dependence: Status: Acute Code(s): F11.20 - Opioid dependence, uncomplicated Assessment and Plan: * suboxone 2mg to start tomorrow morning * outpatient follow up, already in place via [facility] Total time managing care of this patient today 15____ minutes.
--- NOTE | 2022-05-10 14:41 | HO.PSYCHPN ---
Subjective Subjective Date of Service: 05/10/22 Reason For Visit: od Interim History: roused from bed late morning. stayed up late last night reading and slept much of the day yesterday, so feeling tired today. sore throat resolved. no change in plan, hoping top DC this week to [facility]. awaiting word from juancho wood re suboxone start/dosing. per staff, visible, social. pleasant, appropriate. watching TV, slept well after going to sleep at 0300. Mental Status Exam Mental Status Exam Narrative: adequately dressed and groomed. cooperative, no PMA/PMR. speech nml rate, amount, loudness, tone, latency. thoughts linear and logica. no paranoia or delusions. affect constricted, normo-intense, non-labile. no SI/HI/AVH expressed. Diagnostics Vital Signs (24Hr): Vital Signs - 24 hr 05/09/22 21:01 05/10/22 09:15 Temperature 97.5 F 97.7 F Pulse Rate 55 78 Respiratory Rate 20 20 Blood Pressure 130/61 131/72 Pulse Oximetry 96 97 Oxygen Delivery Method Room Air Room Air BMI result Body Mass Index 30.9 Labs 05/03/22 20:00 05/05/22 08:38 Labs: Laboratory Results - last 48 hr 05/09/22 05/09/22 13:54 13:57 COVID-19 ([facility]) Negative COVID-19 Clin Com See Note S. pyogenes GrpA MICHELA Negative Imaging Radiology Impressions: ITS Impressions Chest X-Ray 05/03/22 20:22 IMPRESSION: Multifocal areas of groundglass infiltrate. Small left pleural effusion. Findings suggestive of viral pneumonia. Medications Medications Current Medications Acetaminophen (Acetaminophen 325 Mg Tablet) 650 mg PO Q4H PRN PRN Reason: Headache/Pain Mild Scale (1-3) Al Hydroxide/Mg Hydroxide (Magnesium Hydrox/Alum Hydrox 30 Ml Oral.Susp) 30 ml PO Q6H PRN PRN Reason: Heartburn/Nausea Last Admin: 05/05/22 22:08 Dose: 30 ml Baclofen (Baclofen 10 Mg Tablet) 10 mg PO TID [place] Last Admin: 05/10/22 09:18 Dose: 10 mg Benzocaine (Throat Lozenge, Medicated Lozenge) 1 lozenge MUCOUS MEM Q2H PRN PRN Reason: Sore Throat Last Admin: 05/09/22 09:36 Dose: 1 lozenge Buprenorphine/Naloxone (Buprenorphine/Naloxone 2/0.5mg Film) 1 film SUBLINGUAL DAILY [facility] Clonidine HCl (Clonidine Hcl 0.1 Mg Tablet) 0.1 mg PO TID PRN; Protocol PRN Reason: anxiety/restlessness Escitalopram Oxalate (Escitalopram Oxalate 10 Mg Tablet) 10 mg PO DAILY [facility] Last Admin: 05/10/22 09:18 Dose: 10 mg Hydroxyzine HCl (Hydroxyzine Hcl 25 Mg Tablet) 25 mg PO Q6H PRN PRN Reason: Anxiety Magnesium Hydroxide (Milk Of Magnesia 30 Ml Oral.Susp) 30 ml PO DAILY PRN PRN Reason: Constipation Last Admin: 05/05/22 10:50 Dose: 30 ml Nicotine (Nicotine 21 Mg Patch.Td24) 21 mg TRANSDERMA DAILY [facility] Last Admin: 05/10/22 09:17 Dose: 21 mg Nicotine Polacrilex (Nicotine Polacrilex 2 Mg Gum) 4 mg BUCCAL Q2H PRN PRN Reason: nicotine cravings Last Admin: 05/08/22 12:43 Dose: 4 mg Trazodone HCl (Trazodone Hcl 100 Mg Tablet) 100 mg PO BEDTIME PRN PRN Reason: Insomnia Last Admin: 05/05/22 22:02 Dose: 100 mg Allergies Allergies Allergy/AdvReac Type Severity Reaction Status Date / Time Seasonal Allergies Allergy Mild Runny Nose Verified 05/03/22 19:35 Assessment & Plan Assessment & Plan (1) Opioid use disorder, severe, dependence: Status: Acute Code(s): F11.20 - Opioid dependence, uncomplicated Assessment and Plan: suboxone 2mg to start tomorrow morning outpatient follow up, already in place via CSS Plan Patient chronically depressed has not received prior treatment hopeless helpless despondent self-critical with critical thoughts of why he can not remain sober has limited education regarding both depression opiate dependence open to seeing someone from the addiction team currently on methadone t.i.d. Lexapro amoxicillin for pneumonia Would benefit from psychoeducation aggressive treatment of depression discussed different options for medically assisted treatment would probably also benefit from SSD if he qualifies Monitor pulmonary symptoms 05/05: increase trazodone to 100 mg PRN QHS per pt request, otherwise continue with lexapro 10.? also discussed wellbutrin, which pt decided to hold on starting now but may decide to start later if lexapro is inadequately effective. 05/06: continue current mgmt.? T/C trial of baclofen for AUD at 30 mg or less as supported by johana database analysis.? otherwise continue current mgmt. 05/07: start baclofen 10 TID off-label for AUD.? otherwise continue current mgmt.? appears stable, developing dispo plan. 05/08: DC methadone and start suboxone tuesday.? start omeprazole due to strange sensation in throat, r/o GERD.? otherwise continue current mgmt. 05/09: has been three days since last methadone, malaise likely start of opioid withdrawal.? planning to start suboxone tomorrow.? COVID and strep NEG.? sore throat worse, omep DCed as not helpful.? continue current mgmt otherwise. 05/10: sore throat resolved. per juancho wood, plan to start suboxone 2 mg tomorrow. CSS later in the week. otherwise stable. Reason for contiued inpatient stay Substantial Risk for: rapid decompensation Time Spent With Patient Time: Total time managing care of this patient today ____ minutes.
[2022-05-10 18:00] VITALS: BP 129/59; PULSE 66; RESP 18; TEMP 36.7; O2SAT 96
[2022-05-11 09:05] VITALS: BP 128/67; PULSE 69; RESP 20; TEMP 36.7; O2SAT 97
[2022-05-11] MEDS: Baclofen 10 MG TABLET PO ×3 (09:49→22:02)
[2022-05-11] MEDS: Escitalopram Oxalate 10 MG TABLET PO (09:49)
[2022-05-11] MEDS: Nicotine 21 MG PATCH.TD24 TRANSDERMA (09:50)
[2022-05-11] MEDS: Buprenorphine/Naloxone 2/0.5mg FILM 1 FILM SUBLINGUAL (09:51)
--- NOTE | 2022-05-11 13:34 | P.PNPSI_ITS ---
Subjective Subjective Date of Service: 05/11/22 Reason For Visit: od Subjective Notes: Conditional Voluntary Interim History: Pt reports sleeping and eating well. He reports mood improved and feels less depressed. He is optimistic about his treatment. He started suboxone this morning, tolerating medication so far. No SI/HI. He is looking forward to be discharged tomorrow. No behavioral concerns. Medication Compliance: Yes Review of Systems Constitutional: Reports as per HPI, Reports no additional constitutional complaints and Reports difficulty sleeping Mental Status Exam Mental Status Exam Narrative: adequately dressed and groomed. cooperative, no PMA/PMR. speech nml rate, amount, loudness, tone, latency. thoughts linear and logica. no paranoia or delusions. affect constricted, normo-intense, non-labile. no SI/HI/AVH expressed. Diagnostics Vital Signs (24Hr): Vital Signs - 24 hr 05/10/22 18:00 05/11/22 09:05 Temperature 98.1 F 98.1 F Pulse Rate 66 69 Respiratory Rate 18 20 Blood Pressure 129/59 L 128/67 Pulse Oximetry 96 97 Oxygen Delivery Method Room Air Room Air BMI result Body Mass Index 30.9 Labs 05/03/22 20:00 05/05/22 08:38 Imaging Radiology Impressions: ITS Impressions Chest X-Ray 05/03/22 20:22 IMPRESSION: Multifocal areas of groundglass infiltrate. Small left pleural effusion. Findings suggestive of viral pneumonia. Medications Medications Current Medications Acetaminophen (Acetaminophen 325 Mg Tablet) 650 mg PO Q4H PRN PRN Reason: Headache/Pain Mild Scale (1-3) Al Hydroxide/Mg Hydroxide (Magnesium Hydrox/Alum Hydrox 30 Ml Oral.Susp) 30 ml PO Q6H PRN PRN Reason: Heartburn/Nausea Last Admin: 05/05/22 22:08 Dose: 30 ml Baclofen (Baclofen 10 Mg Tablet) 10 mg PO TID [place] Last Admin: 05/11/22 14:35 Dose: 10 mg Benzocaine (Throat Lozenge, Medicated Lozenge) 1 lozenge MUCOUS MEM Q2H PRN PRN Reason: Sore Throat Last Admin: 05/09/22 09:36 Dose: 1 lozenge Buprenorphine/Naloxone (Buprenorphine/Naloxone 2/0.5mg Film) 1 film SUBLINGUAL DAILY [place] Last Admin: 05/11/22 09:51 Dose: 1 film Clonidine HCl (Clonidine Hcl 0.1 Mg Tablet) 0.1 mg PO TID PRN; Protocol PRN Reason: anxiety/restlessness Escitalopram Oxalate (Escitalopram Oxalate 10 Mg Tablet) 10 mg PO DAILY [facility] Last Admin: 05/11/22 09:49 Dose: 10 mg Hydroxyzine HCl (Hydroxyzine Hcl 25 Mg Tablet) 25 mg PO Q6H PRN PRN Reason: Anxiety Magnesium Hydroxide (Milk Of Magnesia 30 Ml Oral.Susp) 30 ml PO DAILY PRN PRN Reason: Constipation Last Admin: 05/05/22 10:50 Dose: 30 ml Nicotine (Nicotine 21 Mg Patch.Td24) 21 mg TRANSDERMA DAILY [facility] Last Admin: 05/11/22 09:50 Dose: 21 mg Nicotine Polacrilex (Nicotine Polacrilex 2 Mg Gum) 4 mg BUCCAL Q2H PRN PRN Reason: nicotine cravings Last Admin: 05/08/22 12:43 Dose: 4 mg Trazodone HCl (Trazodone Hcl 100 Mg Tablet) 100 mg PO BEDTIME PRN PRN Reason: Insomnia Last Admin: 05/05/22 22:02 Dose: 100 mg Allergies Allergies Allergy/AdvReac Type Severity Reaction Status Date / Time Seasonal Allergies Allergy Mild Runny Nose Verified 05/03/22 19:35 Assessment & Plan Assessment & Plan (1) Major depressive disorder, recurrent severe without psychotic features: Status: Acute Code(s): F33.2 - Major depressive disorder, recurrent severe without psychotic features (2) Opioid use disorder, severe, dependence: Status: Acute Code(s): F11.20 - Opioid dependence, uncomplicated Assessment and Plan: * suboxone 2mg to start tomorrow morning * outpatient follow up, already in place via [facility] Plan Patient chronically depressed has not received prior treatment hopeless helpless despondent self-critical with critical thoughts of why he can not remain sober has limited education regarding both depression opiate dependence open to seeing someone from the addiction team currently on methadone t.i.d. Lexapro amoxicillin for pneumonia Would benefit from psychoeducation aggressive treatment of depression discussed different options for medically assisted treatment would probably also benefit from SSD if he qualifies Monitor pulmonary symptoms 05/05: increase trazodone to 100 mg PRN QHS per pt request, otherwise continue with lexapro 10.? also discussed wellbutrin, which pt decided to hold on starting now but may decide to start later if lexapro is inadequately effective. 05/06: continue current mgmt.? T/C trial of baclofen for AUD at 30 mg or less as supported by johana database analysis.? otherwise continue current mgmt. 05/07: start baclofen 10 TID off-label for AUD.? otherwise continue current mgmt.? appears stable, developing dispo plan. 05/08: DC methadone and start suboxone tuesday.? start omeprazole due to strange sensation in throat, r/o GERD.? otherwise continue current mgmt. 05/09: has been three days since last methadone, malaise likely start of opioid withdrawal.? planning to start suboxone tomorrow.? COVID and strep NEG.? sore throat worse, omep DCed as not helpful.? continue current mgmt otherwise. 05/10: sore throat resolved. per juancho wood, plan to start suboxone 2 mg tomorrow. CSS later in the week. otherwise stable. 05/11 continue tx. Reason for contiued inpatient stay Substantial Risk for: stable for discharge Time Spent With Patient Time: Total time managing care of this patient today ____ minutes.
[2022-05-11 20:55] VITALS: BP 120/60; PULSE 69; RESP 16; TEMP 36.6; O2SAT 97
[2022-05-12] MEDS: Escitalopram Oxalate 10 MG TABLET PO (08:31)
[2022-05-12] MEDS: Nicotine 21 MG PATCH.TD24 TRANSDERMA (08:31)
[2022-05-12] MEDS: Baclofen 10 MG TABLET PO (08:31)
[2022-05-12] MEDS: Buprenorphine/Naloxone 2/0.5mg FILM 1 FILM SUBLINGUAL (08:33)
[2022-05-12 09:09] VITALS: BP 113/67; PULSE 68; RESP 18; TEMP 36.6; O2SAT 97
--- NOTE | 2022-05-12 10:15 | PM.PSYDC ---
DS: Providers Provider Date of Service: 05/12/22 Date of admission: 05/04/22 03:46 Primary care physician: Unknown Physician Consults: 05/04/22 15:21 Addiction Medicine Routine Consulting Provider: Addiction Covering Reason for consultation: ? recommendations for longer term care opiate dep DS: Diagnosis Discharge Diagnosis (1) Major depressive disorder, recurrent severe without psychotic features: Status: Acute (2) Opioid use disorder, severe, dependence: Status: Acute DS: Medications Discharge Medications Home Medications: Previous Rx's Medication Instructions Recorded Suboxone 2 mg-0.5 mg sublingual 1 film sublingual DAILY 30 days 05/12/22 film (buprenorphine-naloxone) #30 ea baclofen 10 mg tablet 10 mg PO TID 30 days #90 tabs 05/12/22 escitalopram oxalate 10 mg tablet 1 tab PO DAILY 30 days #30 tabs 05/12/22 nicotine 21 mg/24 hr daily 1 patch topical DAILY 28 days #28 05/12/22 transdermal patch ea Mental Status Exam Mental Status Exam Narrative: adequately dressed and groomed. cooperative, no PMA/PMR. speech nml rate, amount, loudness, tone, latency. thoughts linear and logica. no paranoia or delusions. mood good. average. content. affect constricted, normo-intense, non-labile. no SI/SIBI/HI/AVH. Data Data Completed and Pending Completed studies during hospitalization [Text1]: 05/05/22 05/09/22 05/09/22 08:38 13:54 13:57 Vitamin B12 515 Folate 9.7 TSH 0.52 COVID-19 ([facility]) Negative COVID-19 Clin Com See Note S. pyogenes GrpA MICHELA Negative Imaging Diagnostic Imaging Impressions Chest X-Ray 05/03/22 20:22 IMPRESSION: Multifocal areas of groundglass infiltrate. Small left pleural effusion. Findings suggestive of viral pneumonia. DS: Summary Hospital Course Hospital Course: per 05/04 admission note: THE PATIENT IS A 32-YEAR-OLD MALE CURRENTLY LIVING IN A SOBER HOUSE REFERRED FROM THE [facility] STATUS POST OVERDOSE.? THE PATIENT WAS EVALUATED BY THE IN CRISIS TEAM HE DID TRY TO OVERDOSE ON FENTANYL HE WAS TREATED IN THE EMERGENCY ROOM WAS REPORTEDLY TREATED FOR PNEUMONIA.? THE PATIENT STATES HE HAS BEEN DIAGNOSED WITH DEPRESSION THE PAST BUT HAS ALWAYS RESISTED TREATMENT FOR IT THINKING HE SHOULD JUST ?A ?ISAAC UP.? HIS MAIN COPING STRATEGY FOR HIS MOOD HAS GENERALLY BEEN USE OF SUBSTANCES INCLUDING FENTANYL AND COCAINE INTRAVENOUSLY.? HE DOES HAVE SUPPORTIVE HIS FAMILY.? AND PATIENT IS QUITE CLOSE WITH HIS SISTER.? HE HAS BEEN STARTED ON S CITALOPRAM 10 MG DAILY.? HE DOES HAVE HISTORY OF CHRONIC DEPRESSION PAST OVERDOSE ATTEMPTS Past Psychiatric History: NO REPORTED PSYCHIATRIC HOSPITALIZATIONS HISTORY OF 3-4 SUICIDE ATTEMPTS AND HE HAS BEEN REVIVED FROM OPIATE USE WITH NARCAN ON NUMBER OF OCCASIONS INCLUDING ON 04/29/2022 Medical Evaluation Reviewed: Yes VIRAL PNEUMONIA NOTED BY ER CHEST X-RAY FINDINGS PATIENT ALSO INITIALLY NOTED SOME BLOOD IN HIS URINE PMFSH Medical History?(Updated 05/05/22 @ 08:28 by Vicente Bedoya MD) Major depressive disorder, recurrent severe without psychotic features Opioid use disorder, severe, dependence Narrative: LONG HISTORY OF INTRAVENOUS OPIATE USE INTERMITTENT COCAINE USE RECENT REPORTED VIRAL PNEUMONIA Family History: POSITIVE FAMILY HISTORY OF DEPRESSION AND ALCOHOL USE POSITIVE HISTORY OF SUICIDE Social History: Patient is unemployed currently living in a sober house 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 He has suffering from chronic depression he was in the past no children he has also worked as a [employer].? He does feel supported by his family particularly his sister Substance History: Long history of opiate dependence intermittent cocaine use history periods of sobriety up to year and a half has not had medically assisted treatment he has lived living in a sober facility Precis: Patient chronically depressed has not received prior treatment hopeless helpless despondent self-critical with critical thoughts of why he can not remain sober has limited education regarding both depression opiate dependence open to seeing someone from the addiction team currently on methadone t.i.d. Lexapro amoxicillin for pneumonia Would benefit from psychoeducation aggressive treatment of depression discussed different options for medically assisted treatment would probably also benefit from SSD if he qualifies Monitor pulmonary symptoms 05/05: increase trazodone to 100 mg PRN QHS per pt request, otherwise continue with lexapro 10.? also discussed wellbutrin, which pt decided to hold on starting now but may decide to start later if lexapro is inadequately effective. 05/06: continue current mgmt.? T/C trial of baclofen for AUD at 30 mg or less as supported by johana database analysis.? otherwise continue current mgmt. 05/07: start baclofen 10 TID off-label for AUD.? otherwise continue current mgmt.? appears stable, developing dispo plan. 05/08: DC methadone and start suboxone tuesday.? start omeprazole due to strange sensation in throat, r/o GERD.? otherwise continue current mgmt. 05/09: has been three days since last methadone, malaise likely start of opioid withdrawal.? planning to start suboxone tomorrow.? COVID and strep NEG.? sore throat worse, omep DCed as not helpful.? continue current mgmt otherwise. 05/10: sore throat resolved.? per juancho wood, plan to start suboxone 2 mg tomorrow.? CSS later in the week.? otherwise stable. 05/11 continue tx. 05/12: started suboxone 2 mg daily yesterday without incident. stable, positive, no safety concerns. discharge to [facility] today per pt request. Time Spent with Patient Time attestation: Total time managing care of this patient today ____ minutes. Time spent: Greater than 30 minutes Discharge Plan Discharge Anticipated Discharge Date/Time: 05/12/22 10:13 Patient Disposition: Xfer Inpatient Rehab Fac Discharge Diagnosis: Opioid Use Disorder, Severe, on partial agonist maintenance Major Depressive Disorder, Moderate, Recurrent Referrals: Physician,Unknown J [Primary Care Provider] - 1 Week (Patient returning to [facility] for community program. Patient will arrange a new PCP once he completes program.) Discharge Medications: New baclofen 10 mg Tablet 10 mg PO TID 30 Days Qty: 90 0RF buprenorphine-naloxone [Suboxone] 2-0.5 mg Film 1 film sublingual DAILY 30 Days Qty: 30 0RF Continued nicotine 21 mg/24 hr patch 24 hour 1 patch topical DAILY 28 Days Qty: 28 0RF escitalopram oxalate 10 mg tablet 1 tab PO DAILY 30 Days Qty: 30 0RF Discontinued amoxicillin-pot clavulanate 875-125 mg tablet 1 tab PO BID methadone 10 mg Tablet 30 mg PO DAILY Discharge Orders: Discharge Order (Routine); Ordered 05/12/22 Ordered By: Trung Valadez Diet: Advance to usual diet Activity on Discharge: As tolerated Stand Alone Forms: Patient Portal Discharge page, Community Support Care Plan Goals: remain safe and sober in the outpatient treatment setting Health Concerns: none Plan of Treatment: take medications as prescribed, attend appointments as scheduled Assessment: not at imminent risk of harm to self or others Discharge Date/Time: 05/12/22 10:50
== END 2022-05-12 10:50 | DRG 751 ==
LOC: HO.ED 22:40 → HO.PADLT16 05-04 03:55
PROVIDERS: Admitting Provider Social Worker; Emergency Provider Internal Medicine; Visit Provider Psychiatry & Neurology Psychiatry
DX: F33.2 Major depressive disorder, recurrent severe without psychotic features (principal); R45.851 Suicidal ideations; J12.9 Viral pneumonia, unspecified; F11.20 Opioid dependence, uncomplicated; Z20.822 Contact with and (suspected) exposure to COVID-19; Z79.899 Other long term (current) drug therapy
CPT/HCPCS: 36415; 71045; 80053; 80061; 80143; 80179; 80307; 82077; 82607; 82746; 83036; 84443; 85025; 87635; 87651; 99285; J1100